=== PATIENT | female | born 1940 | race Caucasian/White ===

== ENCOUNTER 2020-06-16 09:49 | Outpatient (REF) | payer MEDICARE, OTHER, SELFPAY | END 2020-06-16 09:50 | disposition home or self-care (01) | LOC: HO.LAB 09:49 | PROVIDERS: Visit Provider Internal Medicine | DX: Z20.828 Contact with and (suspected) exposure to other viral communicable diseases (principal) | CPT/HCPCS: 87635 ==

== ENCOUNTER 2024-04-29 15:49 | Emergency (ER) | payer MEDICARE, OTHER, SELFPAY ==
--- NOTE | ~2024-04-29 | XR_ITS ---
EXAMINATION: XR CHEST CLINICAL INFORMATION: SOB COMPARISON: Chest xray on 02/18/12 TECHNIQUE: 2 views of the chest were obtained. FINDINGS: No significant abnormality is noted involving the heart, lungs, mediastinum, bony thorax or soft tissues. XR/XR chest 2V IMPRESSION: Unremarkable examination. Electronically signed by: Tatiana Bo MD 04/29/2024 06:13 PM EDT RP
[2024-04-29 16:40] VITALS: BP 162/66; PULSE 81; RESP 20; TEMP 36.3; O2SAT 98; BMI 31.1
--- NOTE | 2024-04-29 16:42 | ED_ITS ---
HPI - General Adult General Chief complaint: Dyspnea Stated complaint: asthma Time Seen by Provider: 04/29/24 21:08 Source: patient and family Mode of arrival: ambulatory Limitations: no limitations History of Present Illness ED Provider: DR. Ratliff HPI narrative: 83-year-old female history of asthma, AFib, presented with symptoms of congestion, nonproductive cough, chest tightness for the past 2 days, was sick with COVID last week, patient stated that she usually gets this asthma symptoms if she is sick at negative home test 2 days ago. Patient also would like to check her urine was recently treated for UTI. Patient last time had upper respiratory infection was RSV and required hospitalization because went into rapid atrial fibrillation No palpitation, no chest pain, otherwise no shortness of breath, no bilateral lower extremities edema, no recent travel, no history of DVT or PE. Related Data Previous Rx's ?Medication ?Instructions ?Recorded albuterol sulfate 90 mcg/actuation 1 inh inhalation QID PRN shortness 04/29/24 aerosol inhaler of breath or wheezing #8.5 grams benzonatate 100 mg capsule 100 mg PO TID PRN cough #14 caps 04/29/24 Allergies Allergy/AdvReac Type Severity Reaction Status Date / Time No Known Allergies Allergy Verified 04/29/24 16:43 Review of Systems 2 Review of Systems: All other systems are reviewed and are negative Constitutional: Reports as per HPI and Reports no additional constitutional complaints Eyes: Reports as per HPI and Reports no additional eye complaints Reports system reviewed and no additional complaints, except as documented Cardiovascular: Reports as per HPI and Reports no additional cardiovascular complaints Respiratory: Reports as per HPI and Reports no additional respiratory complaints Gastrointestinal: Reports as per HPI and Reports no additional gastrointestinal complaints Genitourinary: Reports no additional female genitourinary complaints Musculoskeletal: Reports no additional musculoskeletal complaints Skin/Breast: Reports system reviewed and no additional complaints, except as docu Psychiatric: Reports no additional psychiatric complaints Endocrine: Reports no additional endocrine complaints Hematologic/Lymphatic: Reports no additional hematologic/lymphatic complaints Allergic/Immunologic: Reports no additional allergic/immunologic complaints Reports system reviewed and no additional complaints, except as documented and Reports Abnormal speech present [facility] Social History Social History Smoked in Last 30 Days: No Use of substances other than those prescribed or required for medical reasons: No Advance Directives: Yes Advance Directives Information Provided: No Advance Directives on File: No Physical Exam ED Vital Signs: Vital Signs - 24 hr 04/29/24 16:40 04/29/24 20:27 Temperature 97.3 F 97.8 F Pulse Rate 81 80 Respiratory Rate 20 15 Blood Pressure 162/66 H 155/60 H Pulse Oximetry 98 98 Oxygen Delivery Method Room Air Room Air BMI result Body Mass Index 31.1 Vital signs have been reviewed and appear to be correct. Blood pressure elevated. Heart rate normal. Respiratory rate normal. Temperature normal. Oxygen saturation normal. Appearance: Alert. Oriented X3. No acute distress. Head: Normal external exam. Normocephalic. Atraumatic. No Nava signs noted. No raccoon eyes noted Eyes: PERRLA. EOMI. Conjunctiva and sclera normal. Eyelids normal. ENT: TM's Normal. Pharynx normal. Uvula midline. Moist mucous membranes. No trismus noted. No drooling noted. No muffled voice noted. Neck: Normal inspection. Neck supple. FROM. No adenopathy. Thyroid Normal. No meningeal signs. No neck mass noted. CVS: Normal heart rate and rhythm. Heart sound normal. No murmurs noted. Pulses normal throughout. Respiratory: No respiratory distress. Painless inspiration. Breath sounds normal. No wheezes/rales/rhonchi noted. Chest nontender. No accessory muscle usage noted or decreased air movement noted. Abdomen: Soft and nontender. Bowel sounds normal in all 4 quadrants. No distention noted. No organomegaly noted. No visible injury noted. Back: No CVA tenderness. Full range of motion noted. Skin: Skin warm and dry. Normal skin color. Normal skin turgor. No rashes/lesions/lacerations noted. Extremities: No lower extremity edema. Extremities exhibit normal range of motion. Extremities nontender. Neuro: Oriented X 3. Cranial nerve exam: II-XII are grossly intact No motor deficit. No sensory deficit. Reflexes normal. Course Course Course Narrative: This is an RME: Additional HPI, ROS, PE not included below will be deferred to primary provider. RME assessment and note performed by: Cherie Eduardo PA-C This is a 18-ivqy-bqh-female, asthma, IVIG for autoimmune disorder, a fib on eliquis, HLD, HTN, who presents to the ER with complaints of cough, congestion, and chest tightness. had covid last week. Plan: Labs, EKG, CXR, further ER eval needed Reevaluation(s) Reevaluation #1: COVID positive otherwise stable, no hypoxia, no respiratory distress, no tachypnea patient appear very stable. Will prescribe coughing medicine Tessalon for cough. Use contact percussion. Time: 22:00 Medical Decision Making Differential Diagnosis Differential Diagnoses: The differential diagnosis associated with the presentation includes (ACS, rapid AFib, pneumonia, pneumothorax, pleural effusion, pulmonary embolism, electrolyte derangement, severe anemia, viral pneumonia.) Admission/Observation Consideration of admission/observation: Escalation of care including admission/observation considered Lab Data MDM Lab Attestation statement: I reviewed the patient's lab results. 04/29/24 17:08 04/29/24 17:08 Labs: Lab Results 04/29/24 Range/Units 17:08 WBC 8.3 (4.8-10.8) X10*3/uL RBC 4.21 (4.20-5.50) X10*6/uL Hgb 13.1 (12.0-16.0) g/dl Hct 39.8 (37.0-47.0) % MCV 94.5 (80.0-98.0) fL MCH 31.1 (27.0-33.0) pg MCHC 32.9 (31.0-35.0) g/dl RDW 12.8 (11.0-16.0) % Plt Count 195 (160-400) X10*3/uL MPV 11.7 (9.4-12.3) fL Immature Gran % (Auto) 0.4 (0.0-0.4) % Neut % (Auto) 70.6 (45-73) % Lymph % (Auto) 15.5 L (20-40) % Beaver % (Auto) 11.8 H (2-11) % Eos % (Auto) 1.3 (0-4) % Baso % (Auto) 0.4 (0-2) % Lymph # (Auto) 1.3 (1.2-4.9) X10*3/uL Beaver # (Auto) 1.0 (0.1-1.2) X10*3/uL Eos # (Auto) 0.1 (0.0-0.4) X10*3/uL Baso # (Auto) 0.0 (0.0-0.2) X10*3/uL Abs Immat Gran (auto) 0.03 (0.00-0.03) X10*3/uL Absolute Neuts (auto) 5.8 (2.0-8.3) x10*3/uL Absolute Nucleated RBC 0.000 (0.0-0.012) X10*3/uL Nucleated RBC % (auto) 0.0 (0.0-0.2) /100WBC PT 15.9 H (11.1-13.3) SEC INR 1.3 H (0.9-1.1) APTT 34.0 (26.0-36.8) SEC Sodium 141 (135-145) mmol/L Potassium 3.8 (3.3-5.1) mmol/L Chloride 108 (96-108) mmol/L Carbon Dioxide 24 (22-29) mmol/L Anion Gap 13 (12-20) BUN 22 H (9-16) mg/dL Creatinine 1.11 (0.5-1.4) mg/dL Estim Creat Clear Calc 37.5 Estimated GFR 47 Random Glucose 108 (60-115) mg/dL Calcium 9.4 (8.4-10.2) mg/dL Magnesium 2.4 (1.6-2.6) mg/dL Total Bilirubin 0.5 (0.0-1.0) mg/dL Direct Bilirubin 0.2 (0.0-0.5) mg/dL AST 32 H (5-31) U/L ALT 29 (0-31) U/L Alkaline Phosphatase 92 (39-117) U/L Troponin I High Sens 4.8 (<3.5-17.0) ng/L Total Protein 7.9 (6.5-8.0) g/dL Albumin 4.2 (3.5-5.0) g/dL Influenza Type A (PCR) NEGATIVE (Negative) Influenza Type B (PCR) NEGATIVE (Negative) RSV RNA Qual (PCR) NEGATIVE (Negative) SARS-CoV-2 RNA (RT-PCR) POSITIVE A (Negative) Independent Interpretation I performed an independent interpretation of an: EKG (Normal sinus rhythm at 74 beats per minutes, normal intervals, no ST-T changes.) and Plain X-Ray (Chest: No acute intrathoracic pathology.) Radiology Impression Discussion of test interpretation with radiology: I have reviewed the radiologist's reading. Chronic Conditions Patient?s care impacted by: Other (Asthma) Discharge Plan Discharge Clinical Impression: Asthma with exacerbation, COVID-19 virus infection Patient Disposition: Home, Self-Care Instructions: COVID-19 (Coronavirus Disease 2019) (ED) Additional Instructions: Use face mask at all times, keep 6 ft social distant, frequent hand wash, self quarantine for the next 5 days. Prescriptions: New benzonatate 100 mg capsule 100 mg PO TID PRN (Reason: cough) Qty: 14 0RF albuterol sulfate 90 mcg/actuation HFA aerosol inhaler 1 inh inhalation QID PRN (Reason: shortness of breath or wheezing) Qty: 8.5 0RF Referrals: Irena Lucia MD [Primary Care Provider] - Print Language: Sinhala
--- NOTE | 2024-04-29 16:45 | ECG_ITS ---
Test Reason : ASTHMA Blood Pressure : / mmHG Vent. Rate : 074 BPM Atrial Rate : 074 BPM P-R Int : 166 ms QRS Dur : 094 ms QT Int : 394 ms P-R-T Axes : 003 026 062 degrees QTc Int : 437 ms Normal sinus rhythm Normal ECG When compared with ECG of 08-FEB-2005 08:37, No significant change was found Referred By: Cherie Eduardo Electronically Signed By:IVETH SHELBY
--- OUTSIDE RECORDS SUMMARY | 2024-04-29 17:12 | XMS_ITS | Continuity of Care Document ---
Author Organization [facility] Address [address] [place] [address]- Care Team Providers Care Mechanical Engineering Advisor Name Role Phone Dante SANTIAGO, Neela Garcia Primary Care Physician Encounter [facility] [place] Date(s): 01/09/22 - 01/16/22 [facility] [address], [place] [address] Encounter Diagnosis Tick bite(Discharge Diagnosis) - 01/09/22 Attending Physician: Seth Clifton DO Referring Physician: Dante SANTIAGO, Neela Garcia Allergies, Adverse Reactions, Alerts Substance Reaction Severity Status cortisone flushing, fever Active Percodan Active Immunizations Given and Recorded Vaccine Date Status Refusal Reason Haemophilus B conjugate (HbOC) vaccine 02/19/12 [facility] Zoster Vaccine Live 01/06/08 Given Medications Acidophilus By Mouth, Daily, 0 Refills, Maintenance, 05/26/15 8:06:56 Start Date: 05/26/15 Status: Ordered Bivigam 1x a month Bivigam 1x a month, Refills 0, Maintenance, 05/26/15 12:50:37, Compound Start Date: 05/26/15 Status: Ordered budesonide 0.5 mg/2 mL inhalation suspension 2 mL = 0.5 mg, Neb, 2 times a day, uses intranasally, 0 Refills, Maintenance, 05/26/15 8:09:11 Start Date: 05/26/15 Status: Ordered Calcium Carbonate = 1,000 mg, By Mouth, Daily, 0 Refills, Maintenance, 05/26/15 8:06:32 Start Date: 05/26/15 Status: Ordered Diltiazem = 240 mg, By Mouth, Daily, 0 Refills, Maintenance, 02/19/12 16:21:36 Start Date: 02/19/12 Status: Ordered Doxepin = 25 mg, By Mouth, Daily at bedtime, 0 Refills, Maintenance, 02/19/12 16:20:58 Start Date: 02/19/12 Status: Ordered doxycycline hyclate 100 mg oral capsule 2 capsule = 200 mg, By Mouth, Once, # 2 capsule, 0 Refills, Soft Stop, 01/09/22 11:49:00 EDT, Partial fill upon patient request if the prescription is for a schedule II opioid drug. Start Date: 01/09/22 Status: Ordered Flebogamma 10% intravenous solution 30 grams, IV Infusion, Every 28 days, 0 Refills, Maintenance, 04/11/16 14:48:37 Start Date: 04/11/16 Status: Ordered folic acid 0.4 mg oral tablet 1 tablet = 0.4 mg, By Mouth, Daily, # 100 tablet, 0 Refills, Maintenance, 05/26/15 8:08:46, Tablet Start Date: 05/26/15 Status: Ordered Singulair By Mouth, Daily, 0 Refills, Maintenance, 05/10/17 13:27:17 Start Date: 05/10/17 Status: Ordered turmeric 500 mg oral capsule 1 capsule = 500 mg, By Mouth, Daily, # 60 capsule, 0 Refills, Maintenance, 04/01/20 10:34:00 EDT, Capsule Start Date: 04/01/20 Status: Ordered Vitamin B12 1000 mcg oral tablet 1 tablet = 1,000 mcg, By Mouth, Daily, 0 Refills, Maintenance, 05/26/15 8:08:03 Start Date: 05/26/15 Status: Ordered Vitamin D3 1000 intl units oral tablet 1 tablet = 1,000 International_Units, By Mouth, Daily, 0 Refills, Maintenance, 05/26/15 8:07:37 Start Date: 05/26/15 Status: Ordered Problem List Condition Effective Dates Status Health Status Inform ant 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 Need for hemophilus influenz a type B (Hib) vaccine(Confirmed) Active Obese class I(Confirmed) Active Tubular adenoma of colon(Confirmed) 1 06/27/15 Active 1tubular adenoma of colon in 2020 Diagnosis Diagnosis Type Effective Dates Health Status Clini alfredo Service Informant Tick bite Discharge Diagnosis 01/09/22 Vital Signs Most recent to oldest [Reference Range]: 1 Height 157.4 cm (01/09/22 11:27 AM) Oxygen Saturation [94-100 %] 100 % (01/09/22 11:27 AM) Pulse Rate [55-90 bpm] 78 bpm (01/09/22 11:27 AM) Blood Pressure [90-138/55-84 mm Hg] 158/ 75mm Hg *H* (01/09/22 11:27 AM) Temperature [96.8-100.4 DegF] 97.4 DegF (01/09/22 11:27 AM) Mode of Delivery (Oxygen) Room air (01/09/22 11:27 AM) Blood pressure sites Arm, right (01/09/22 11:27 AM) Temperature Route Temporal (01/09/22 11:27 AM) Social History Social History Type Response Smoking Status Former smoker entered on: 06/24/14 Sex
--- OUTSIDE RECORDS SUMMARY | 2024-04-29 17:12 | XMS_ITS | Continuity of Care Document ---
Author Organization [facility] Address [address] [place] [address]- Care Team Providers Care Felter Tennis Balls Name Role Phone Not on Staff, PCP Primary Care Physician Unavail able Encounter [facility] [place] Date(s): 11/14/21 - 12/14/21 [facility] [address] [place] [id number]- [place] Allergies, Adverse Reactions, Alerts Substance Reaction Severity [...] 02/19/12 16:20:58 Start Date: 02/19/12 Status: Ordered Flebogamma 10% intravenous solution 30 [...] influenz a type B (Hib) vaccine(Confirmed) Active Tubular adenoma of colon(Confirmed) 1 06/27/15 Active 1tubular adenoma of colon in 2020 Social History Social History Type Response Smoking Status Former smoker entered on: 06/24/14 Sex
--- OUTSIDE RECORDS SUMMARY | 2024-04-29 17:12 | XMS_ITS | Continuity of Care Document ---
Author Organization [facility] ter Address [address] [place] [address]- Care Team Providers Care Obedience Trainer Name Role Phone Jasmyn DAMON, Tania Primary Care Physician [phone] Encounter [facility] Date(s): 02/15/20 - 06/22/[address] [address]- [facility] Attending Physician: Vanessa Peres MD Admitting Physician: Vanessa Peres MD Referring Physician: Vanessa Peres MD Allergies, Adverse Reactions, Alerts Substance Reaction Severity [...] Ordered doxycycline hyclate 100 mg oral capsule 1 capsule = 100 mg, By Mouth, 2 times a day, # 20 capsule, 0 Refills, Maintenance, 03/28/18 13:42:30 EDT, Capsule Start Date: 03/28/18 Status: Ordered Flebogamma 10% intravenous solution 30 [...] Effective Dates Status Health Status Inform ant Mannose-binding lectin deficiency(Confirmed) Active Need for hemophilus influenz a type B (Hib) vaccine(Confirmed) Active Tubular adenoma of colon(Confirmed) 06/27/15 Active Social History Social History Type Response Smoking Status Former smoker entered on: 06/24/14 Sex
--- OUTSIDE RECORDS SUMMARY | 2024-04-29 17:12 | XMS_ITS | Continuity of Care Document ---
Author Organization [facility] Address [address] [place] [address]- Care Team Providers Care Dietitian Helper Name Role Phone Jasmyn DAMON, Tania Primary Care Physician [phone] [place] [facility] [place](s): 11/29/20 - 12/29/20 [facility] [address] [place] [id number] Attending Physician: Maria Teresa Westbrook Admitting Physician: Maria Teresa Westbrook Referring Physician: Maria Teresa Westbrook Allergies, Adverse Reactions, Alerts Substance Reaction Severity [...]
--- OUTSIDE RECORDS SUMMARY | 2024-04-29 17:12 | XMS_ITS | Continuity of Care Document ---
Author Organization [facility] Address [address] [place] [address]- Care Team Providers Care Operations Vocational Instructor Name Role Phone Dante SANTIAGO, Neela Garcia Primary Care Physician Encounter [facility] [place] Date(s): 12/28/21 - 01/27/22 [facility] [address] [place] [address]- Attending Physician: Maria Teresa Westbrook Admitting Physician: AdmMaria Teresa sutton Referring Physician: AdmtrMaria Teresa Allergies, Adverse Reactions, Alerts Substance Reaction Severity [...]
--- OUTSIDE RECORDS SUMMARY | 2024-04-29 17:12 | XMS_ITS | Continuity of Care Document ---
Author Organization [facility] ter Address [address] [place] [address]- Care Team Providers Care Toll Gate Tender Name Role Phone Jasmyn DAMON, Tania Primary Care Physician Encounter [facility] [place] Date(s): 08/22/19 - 08/22/[address] [address]- [facility] Attending Physician: Vanessa Peres MD Allergies, Adverse Reactions, [...] 05/10/17 13:27:17 Start Date: 05/10/17 Status: Ordered Vitamin B12 1000 mcg oral [...]
--- OUTSIDE RECORDS SUMMARY | 2024-04-29 17:12 | XMS_ITS | Continuity of Care Document ---
Author Organization [facility] ter Address [address] [place] [address]- Care Team Providers Care Ragman Name Role Phone Jasmyn DAMON, Tania Primary Care Physician [phone] Encounter [facility] [place] Date(s): 08/22/19 - 08/22/[address] [address]- [facility] Attending Physician: Tania Vines MD Allergies, Adverse Reactions, Alerts Substance Reaction [...]
--- OUTSIDE RECORDS SUMMARY | 2024-04-29 17:12 | XMS_ITS | Continuity of Care Document ---
Author Organization [facility] Address [address] [place] [address]- Care Team Providers Care Commissary Assistant Name Role Phone Tania Vines MD Primary Care Physician [phone] Encounter [id number] Date(s): 11/29/20 - 04/04/21 [facility] [address] [place] [address]- Discharge Disposition: A-D/C Home Attending Physician: Mary Ellen DAMON(Hem/Onc), Chase Krishnamurthy Admitting Physician: Mary Ellen DAOMN(Hem/Onc), Chase Krishnamurthy Referring Physician: Bhavin Wade MD Allergies, Adverse Reactions, Alerts Substance Reaction [...] Active Tubular adenoma of colon(Confirmed) 06/27/15 Active Vital Signs Most recent to oldest [Reference Range]: 1 Height 160.00 cm (01/13/21 9:26 AM) Weight 79.1 kg (01/13/21 9:26 AM) Oxygen Saturation [94-100 %] 99 % (01/13/21: AM) Pulse Rate [55-90 bpm] 91 bpm *H* (01/13/21: AM) Body Mass Index [18.5-24.99] 30.9 *>HHI* (01/13/21 9: AM) Blood Pressure [90-138/55-84 mm Hg] 155/ 88mm Hg *H* (01/13/21 9: AM) Respiratory Rate [16-30 br/min] 18 br/mi n (01/13/21: AM) Temperature [96.8-100.4 DegF] 98.5 DegF (01/13/21 9:26 AM) Mode of Delivery (Oxygen) Nasal cannula (01/13/21 9:26 AM) Blood pressure sites Arm, left (01/13/21 9:26 AM) Temperature Route Temporal (01/13/21 9:26 AM) Dry Weight 79.1 kg (01/13/21 9:26 AM) Weight Obtained Via Standing scale (01/13/21 9:26 AM) Dry Weight Obtained Via Standing scale (01/13/21 9:26 AM) Social History Social History Type Response Smoking Status Former smoker entered on: 06/24/14 Sex
--- OUTSIDE RECORDS SUMMARY | 2024-04-29 17:12 | XMS_ITS | Continuity of Care Document ---
Author Organization [facility] ter Address [address] [place] [address]- Care Team Providers Care Classifying Machine Operator Name Role Phone Jasmyn DAMON, Tania Primary Care Physician [place] [facility] [place] - 05/29/[address] [address]- [facility] Attending Physician: Vanessa Peres MD Admitting Physician: [...]
--- OUTSIDE RECORDS SUMMARY | 2024-04-29 17:12 | XMS_ITS | Continuity of Care Document ---
Author Organization [facility] Address [address] [place] [address]- Care Team Providers Care Adult Psychiatrist Name Role Phone Khari DAMON, Irena Zhong Primary Care Physician Encounter [facility] [place] Date(s): 10/02/22 - 02/06/[address] [id number] Attending Physician: Vanessa Peres MD Admitting Physician: Vanessa Peres MD Referring Physician: Vanessa Peres MD Allergies, Adverse Reactions, Alerts Substance Reaction Severity Status cortisone flushing, fever Active Percodan Active NSAIDs Active Immunizations Given and Recorded Vaccine Date Status Refusal Reason [id number] 12y+ bivalent booster vax 05/29/22 Recorded influenza virus vaccine, inactivated 05/08/22 Gigi rded influenza virus vaccine, inactivated 04/25/20 Gigi rded influenza virus vaccine, inactivated 05/25/19 Gigi rded influenza virus vaccine, inactivated 05/28/18 Gigi rded influenza virus vaccine, inactivated 05/13/17 Gigi rded influenza virus vaccine, inactivated 05/01/16 Gigi rded influenza virus vaccine, inactivated 06/29/15 Gigi rded influenza virus vaccine, inactivated 05/21/11 Gigi rded influenza virus vaccine, inactivated 07/07/10 Gigi rded SARS-CoV-2 mRNA ([id number]) vax 01/02/22 Recorded SARS-CoV-2 (COVID-19) mRNA BNT-162b2 vac 07/02/21 Recorded tetanus/diphtheria/pertussis, acel(Tdap) 08/22/19 Recorded Haemophilus B conjugate (HbOC) vaccine 02/19/12 Gi carlita Zoster Vaccine Live 01/06/08 Given Medications Acidophilus By Mouth, Daily, 0 Refills, Maintenance, 05/26/15 8:06:56 Start Date: 05/26/15 Status: Ordered Albuterol (Eqv-ProAir HFA) 90 mcg/inh inhalation aerosol 2 puffs, Inhalation, Every 6 hours, PRN Wheezing/Shortness of Breath, 0 Refills, Maintenance, 12/08/22 11:03:00 EDT, Partial fill upon patient request if the prescription is for a schedule II opioid drug. Start Date: 12/08/22 Status: Ordered apixaban 5 mg oral tablet 1 tablet = 5 mg, By Mouth, 2 times a day, # 180 tablet, 3 Refills, Maintenance, 12/20/22 15:40:00 EDT, Tablet, Partial fill upon patient request if the prescription is for a schedule II opioid drug. Start Date: 12/20/22 Stop Date: 12/15/23 Status: Ordered atorvastatin 20 mg oral tablet 1 tablet = 20 mg, By Mouth, Daily, # 90 tablet, 0 Refills, Maintenance, 12/08/22 11:05:00 EDT, Tablet, Partial fill upon patient request if the prescription is for a schedule II opioid drug. Start Date: 12/08/22 Status: Ordered Bivigam 1x a month Bivigam 1x a month, Refills 0, Maintenance, 05/26/15 12:50:37, Compound Start Date: 05/26/15 Status: Ordered Calcium Carbonate = 1,000 mg, By Mouth, Daily, 0 Refills, Maintenance, 05/26/15 8:06:32 Start Date: 05/26/15 Status: Ordered cetirizine 5 mg oral tablet = 10 mg, By Mouth, Daily, PRN Wheezing/Shortness of Breath, # 30 tablet, 0 Refills, Maintenance, 12/08/22 11:11:00 EDT, Tablet, Partial fill upon patient request if the prescription is for a scheduleII opioid drug. Start Date: 12/08/22 Status: Ordered Cranberry oral capsule 1 capsule, By Mouth, Daily, 0 Refills, Maintenance, 06/01/22 8:35:00 EDT, Partial fill upon patientrequest if the prescription is for a schedule II opioid drug. Start Date: 06/01/22 Status: Ordered dilTIAZem 360 mg/24 hours oral capsule, extended release 1 capsule = 360 mg, By Mouth, Daily, # 90 capsule, 0 Refills, Maintenance, 01/04/23 11:07:00 EDT, CR Capsule, Partial fill upon patient request if the prescription is for a schedule II opioid drug. Start Date: 01/04/23 Status: Ordered doxepin 25 mg oral capsule 2 capsule = 50 mg, By Mouth, Daily at bedtime, # 60 capsule, 0 Refills, Maintenance, 01/04/23 11:11:00 EDT, Capsule, Partial fill upon patient request if the prescription is for a schedule II opioid drug. Start Date: 01/04/23 Status: Ordered famotidine 40 mg oral tablet 1 tablet = 40 mg, By Mouth, Daily at bedtime, # 90 tablet, 0 Refills, Maintenance, 01/04/23 11:09:00 EDT, Tablet, Partial fill upon patient request if the prescription is for a schedule II opioid drug. Start Date: 01/04/23 Status: Ordered Flebogamma 10% intravenous solution 30 grams, IV Infusion, Every 28 days, 0 Refills, Maintenance, 04/11/16 14:48:37 Start Date: 04/11/16 Status: Ordered fluticasone CFC free 220 mcg/inh inhalation aerosol 2 puffs, Inhalation, 2 times a day, # 12 Gm, 0 Refills, Maintenance, 01/04/23 11:10:00 EDT, Aerosol, Partial fill upon patient request if the prescription is for a schedule II opioid drug. Start Date: 01/04/23 Status: Ordered Senna 8.6 mg oral tablet 8.6 mg, 1, tablet, By Mouth, Daily at bedtime, Refills 0, Maintenance, 12/08/22 11:16:00 EDT, Partial fill upon patient request if the prescription is for a schedule II opioid drug. 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 Mild intermittent asthma Confirmed Active Obese class I Confirmed Active Osteopenia Confirmed Active Squamous cell skin cancer Confirmed Active Hepatic steatosis Confirmed Active Tubular adenoma of colon 1 Confirmed 06/27/15 Active 1tubular adenoma of colon in 2020 Social History Social History Type Response Smoking Status Former smoker entered on: 06/24/14 Sex Patient Care team information Care Team Personnel Name: Rosi Blum RN Position: S RN Member Role: Primary Care Nurse Name: Taylor Street RN Position: [facility] RN Supv Member Role: Primary Care Nurse Name: Irena Lucia MD Position: [facility] Physician - Primary Care Member Role: PCP Address: Address: [address] [place] [address] [place] [address]- Name: Montse Boyer RN Position: [facility] SN RN Member Role: Primary Care Nurse Name: Diane Nelson RN Position: [facility] Onco RN Member Role: Primary Care Nurse Care Team Related Persons Name: TIM HENRIQUEZ Name: IVETH HOLLAND Address: [address] [address]
--- OUTSIDE RECORDS SUMMARY | 2024-04-29 17:12 | XMS_ITS | Continuity of Care Document ---
Author Organization [facility] Address [address] [place] [address]- Care Team Providers Care Copier Operator Name Role Phone Irena Lucia MD Primary Care Physician En[place] [facility] [place](s): 01/08/23 - 03/12/23 [facility] [address] [place] [address]- Discharge Disposition: A-D/C Home Attending Physician: Mary Ellen DAMON(Hem/Onc), Chase Krishnamurthy Admitting Physician: Mary Ellen DAMON(Hem/Onc), Chase Krishnamurthy Referring Physician: Irena Lucia MD Allergies, Adverse Reactions, Alerts Substance Reaction Severity Status cortisone flushing, fever Active Percodan Active NSAIDs Active Immunizations Given and Recorded Vaccine Date Status Refusal Reason [id number] 12y+ bivalent booster vax 05/29/22 Recorded influenza [...] vaccine, inactivated 07/07/10 Gigi rded SARS-CoV-2 mRNA ([id number]) vax 01/02/22 Recorded SARS-CoV-2 (COVID-19) mRNA BNT-162b2 [...] Chronic sinusitis Confirmed 01/20/15 Active 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 Active Pancreatic lesion Confirmed Active [...] Active 1tubular adenoma of colon in 2020 Vital Signs Most recent to oldest [Reference Range]: 1 Height 157.4 cm (01/10/23 9:21 AM) Weight 78 kg (01/10/23 9:21 AM) Oxygen Saturation [94-100 %] 97 % (01/10/23 9:21 AM) Pulse Rate [55-90 bpm] 81 bpm (01/10/23 9:21 AM) Body Mass Index [18.5-24.99 kg/m2] 31.48 kg/m2 *>HHI* (01/10/23 9:21 AM) Blood Pressure [90-138/55-84 mm Hg] 128/ 68mm Hg (01/10/23 9:21 AM) Temperature [96.8-100.4 DegF] 98.5 DegF (01/10/23 9:21 AM) Mode of Delivery (Oxygen) Room air (01/10/23 9:21 AM) Blood pressure sites Arm, right (01/10/23 9:21 AM) Temperature Route Oral (01/10/23 9:21 AM) Dry Weight 78 kg (01/10/23 9:21 AM) Weight Obtained Via Standing scale (01/10/23 9:21 AM) Dry Weight Obtained Via Standing scale (01/10/23 9:21 AM) Social History Social History Type Response Smoking Status Former smoker entered on: 06/24/14 Sex Patient Care team information Care Team Personnel Name: Rosi Blum RN Position: [facility] RN Member Role: Primary Care Nurse Name: Taylor Street RN Position: [facility] RN Supv Member Role: Primary Care Nurse Name: Irena Lucia MD Position: [facility] Physician - Primary Care Member Role: PCP Address: Address: [facility] [place] [address]- Name: Montse Boyer RN Position: [facility] SN RN Member Role: Primary Care Nurse Name: Diane Nelson RN Position: [facility] Onco RN Member Role: Primary Care Nurse Name: Mary Ellen DAMON(Hem/Onc)Chase Position: [facility] Physician - Oncology Med Service: Hematology & Oncology Member Role: Admitting Physician Address: Address: [address] [place] [address] Cancer Care [facility] [place] [address]- Care Team Related Persons Name: TIM HENRIQUEZ Name: IVETH HOLLAND Address: [address] [address]
--- OUTSIDE RECORDS SUMMARY | 2024-04-29 17:12 | XMS_ITS | Continuity of Care Document ---
Author Organization [facility] Address [address] [place] [address]- Care Team Providers Care Hop Grower Name Role Phone Khari DAMON, Irena Zhong Primary Care Physician [phone] Encounter [facility] [place] Date(s): 08/28/23 - 09/27/23 [facility] [address] [place] [address]- Allergies, Adverse Reactions, Alerts Substance Reaction Severity Status cortisone flushing, fever Active Percodan Active NSAIDs Active Immunizations Given and Recorded Vaccine Date Status Refusal Reason RSV vaccine preF3, recombinant 06/10/23 Recorded SARS-CoV-2(COVID-19)mRNA-LNP vac([id number]) 06/01/23 Recorded influenza virus vaccine, inactivated 05/28/23 Gigi rded influenza virus vaccine, inactivated 05/08/22 Gigi rded influenza virus vaccine, inactivated 04/25/20 Gigi rded influenza virus vaccine, inactivated 05/25/19 Gigi rded influenza virus vaccine, inactivated 05/28/18 Gigi rded influenza virus vaccine, inactivated 05/13/17 Gigi rded influenza virus vaccine, inactivated 05/01/16 Gigi rded influenza virus vaccine, inactivated 06/29/15 Gigi rded influenza virus vaccine, inactivated 05/21/11 Gigi rded influenza virus vaccine, inactivated 07/07/10 Gigi rded [id number] 12y+ bivalent booster vax 05/29/22 Recorded SARS-CoV-2 mRNA ([id number]) vax 01/02/22 Recorded SARS-CoV-2 (COVID-19) mRNA BNT-162b2 [...] By Mouth, 2 times a day, # 14 tablet, 0 Refills, Maintenance, 09/06/23 13:09:00 EST, Tablet, [facility]/pharmacy #[id number], Partial fill upon patient request if the prescription is for a schedule II opioid drug., 157.4, cm, 07/11/23 14:19:00 EST... Start Date: 09/06/23 Stop Date: 12/05/23 Status: Ordered atorvastatin 20 mg oral tablet 1 tablet = 20 mg, By Mouth, Daily, # 30 tablet, 6 Refills, Maintenance, 06/20/23 8:30:00 EDT, Tablet, [facility]/pharmacy #[id number], Partial fill upon patient request if the prescription is for a schedule II opioid drug., 157.4, cm, 06/04/23 10:18:00 EDT, Height... Start Date: 06/20/23 Status: Ordered Bivigam 1x a month Bivigam [...] bedtime, # 60 capsule, 0 Refills, Maintenance, 09/27/23 14:30:00 EST, Capsule, [facility]/pharmacy #[id number], Partial fill upon patient request if the prescription is for aschedule II opioid drug., 157.4, cm, 07/11/23 14:19... 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 Chronic anticoagulation Confirmed Active Mannose-binding lectin deficiency Confirmed Active [...] RN Member Role: Primary Care Nurse Name: Irena Lucia MD Position: [facility] Physician - Primary Care Member Role: PCP Address: Address: [address] [place] [address] [place] [address]- Name: Montse Boyer RN Position: [facility] SN RN Member Role: Primary Care Nurse Name: Diane Nelson RN Position: [facility] Onco RN Member Role: Primary Care Nurse Name: Kimberly Pabon RN Position: [facility] SN RN Member Role: Primary Care Nurse Care Team Related Persons Name: TIM HENRIQUEZ Name: IVETH HOLLAND Address: [address] [address]
--- OUTSIDE RECORDS SUMMARY | 2024-04-29 17:12 | XMS_ITS | Continuity of Care Document ---
Author Organization [facility] Address [address] [place] [address]- Care Team Providers Care Slot Machine Key Person Name Role Phone Khari DAMON, Irena Zhong Primary Care Physician Encounter [facility] [place] Date(s): 07/11/23 - 07/18/23 [facility] [address] [place] [address]- Attending Physician: Celestine Saenz MD Allergies, Adverse Reactions, Alerts Substance Reaction Severity Status cortisone flushing, fever Active Percodan Active NSAIDs Active Immunizations Given and Recorded Vaccine Date Status Refusal Reason RSV vaccine preF3, recombinant 06/10/23 Recorded SARS-CoV-2(COVID-19)mRNA-LNP vac([id number]) 06/01/23 Recorded influenza virus vaccine, inactivated 05/28/23 [...] influenza virus vaccine, inactivated 07/07/10 Gigi rded [id number] 12y+ bivalent booster vax 05/29/22 Recorded SARS-CoV-2 mRNA ([id number]-[id number]) vax 01/02/22 Recorded SARS-CoV-2 (COVID-19) mRNA BNT-162b2 [...] 6 Refills, Maintenance, 06/20/23 8:30:00 EDT, Tablet, [facility]/pharmacy #[id number], Partial fill upon patient request if [...] Status Informant Afib Confirmed Active 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 Active Diverticulosis Confirmed Active Essential [...] Most recent to oldest [Reference Range]: 1 2 Height 157.4 cm (07/11/23 2:19 PM) 157.4 cm (07/11/23 2:13 PM) Weight 80.7 kg (07/11/23 2:13 PM) Oxygen Saturation [94-100 %] 98 % (07/11/23 2:13 PM) Pulse Rate [55-90 bpm] 78 bpm (07/11/23 2:19 PM) 81 bpm (07/11/23 2:13 PM) Body Mass Index [18.5-24.99 kg/m2] 32.57 kg/m2 *>HHI* (07/11/23 2:13 PM) Blood Pressure [90-138/55-84 mm Hg] 132/ 64mm Hg (07/11/23 2:19 PM) 147/66mm Hg *H* (07/11/23 2:13 PM) Mode of Delivery (Oxygen) Room air (07/11/23 2:13 PM) Blood pressure sites Arm, right (07/11/23 2:19 PM) Arm, left (07/11/23 2:13 PM) Weight Obtained Via Bed scale (07/11/23 2:13 PM) Social History Social History Type Response Smoking Status Former smoker entered on: 06/24/14 Sex Cardiology Outpatient Note * Dany DAMON, Celestine Velasquez: PERFORM Event Display: Cardiology Note Office Authored Date: [id number] Patient: ??ZEE HOLLAND ? Age:??83 Years?Sex:??Female?:??1940?? Indication for Consult Afib 6 mo follow up History of Present Illness/Interval History It was a pleasure seeing Eugenie in follow-up. ??She states that overall she is doing well. ??She denies any??chest pain or shortness of breath.?? She is tolerating her current dose of atorvastatin without difficulty.?? She had lipids checked yesterday??by her PCP but she does not know the results??yet. ??She states that sometimes her blood pressure is very low.?? It is in the 100 systolic. ??Do Ineed to be??on this high of a dose??of??diltiazem? ??Also notes that she read??about taking statins every other day and is interested in??discussing this Review of Systems 10+ system ROS performed, pertinent positives and negatives in HPI and below. ??See scanned patientquestionnaire. Physical Exam Vitals & Measurements HR:??78??(Peripheral)?? BP:??132/64?? SpO2:??98%?? HT:??157.4??cm?? WT:??80.7??kg?? BMI:??32.57?? Weight lb/oz: 177 lb 15 oz Gen: pleasant, in no distress on room air, BMI mildly elevated Resp: lungs clear to auscultation bilaterally CV: normal rate, regular rhythm, no murmurs rubs or gallops. Ext: ??No JVD. ??No lower extremity edema. No carotid bruits.?? Assessment/Plan 83-year-old female with history of paroxysmal atrial fibrillation,??on chronic anticoagulation withEliquis,??essential hypertension, mixed hyperlipidemia, class I obesity presents for follow-up.?? She is doing very well with no cardiovascular symptoms. ??Her blood pressure and lipids are much improved.?? Regarding??the question about her diltiazem dose, we??discussed that??she is on diltiazem both for rate control of atrial fibrillation and blood??pressure control.?? I do not consider systolicblood pressure in 100s to be low??when it is asymptomatic. ??We will make no changes on that front.?? Regarding taking her statin every other day, we??discussed the??rationale for treating hyperlipide maria, specifically??reducing atherosclerotic cardiovascular risk. ??Her 10- year??ASCVD risk is 15.3%now which is considered intermediate to high.?? Her 10- year atherosclerotic cardiovascular risk in 2020 prior to starting the statin, however was 26.7%. ??She has had a robust response to the statin and I would not suggest changing it.?? Continue??anticoagulation for??atrial fibrillation given [id number]??of??at least 4.?? I will see her back in a year. 1.??Paroxysmal A-fib 2.??Chronic anticoagulation 3.??Essential hypertension 4.??Mixed hyperlipidemia 5.??Obese class I ? The above note was prepared with the help of voice recognition software. Please excuse any grammatical or spelling errors that may have occurred. ?? Thank you for involving me in the care of this patient. ??Please do not hesitate to contact me withquestions or concerns. ?? Celestine Saenz MD [facility] [phone] ?? [address] [place] [address] Allergies NSAIDs Percodan cortisone??(flushing, fever) Home Medications Acidophilus, By Mouth, Daily Albuterol (Eqv-ProAir HFA) 90 mcg/inh inhalation aerosol, 2 puffs, Inhalation, Every 6 hours, PRN apixaban 5 mg oral tablet, 5 mg= 1 tablet, By Mouth, 2 times a day, 3 refills atorvastatin 20 mg oral tablet, 20 mg= 1 tablet, By Mouth, Daily, 6 refills Bivigam 1x a month Calcium Carbonate, 1000 mg, By Mouth, Daily cetirizine 5 mg oral tablet, 10 mg, By Mouth, Daily, PRN Cranberry oral capsule, 1 capsule, By Mouth, Daily dilTIAZem 360 mg/24 hours oral capsule, extended release, 360 mg= 1 capsule, By Mouth, Daily doxepin 25 mg oral capsule, 50 mg= 2 capsule, By Mouth, Daily at bedtime famotidine 40 mg oral tablet, 40 mg= 1 tablet, By Mouth, Daily at bedtime Flebogamma 10% intravenous solution, 30 grams, IV Infusion, Every 28 days fluticasone CFC free 220 mcg/inh inhalation aerosol, 2 puffs, Inhalation, 2 times a day Gammagard 10% Liquid, 30 Gm= 300 mL, IVPB, Every 28 days NaCL 0.9% 500 mL, 500 mL, IV Infusion Senna 8.6 mg oral tablet, 8.6 mg= 1 tablet, By Mouth, Daily at bedtime Singulair, By Mouth, Daily Lab Results Cardiology Labs WBC: 7.2 k/mm3 (07/11/23) RBC: 4.38 m/mm3 (07/11/23) Hgb: 13.5 Gm/dL (07/11/23) Hct: 41.3 % (07/11/23) MCV: 94.3 femtoliters (07/11/23) MCH: 30.8 pg (07/11/23) MCHC:??32.7 g/dL??Low (07/11/23) Platelet Count: 236 k/mm3 (07/11/23) RDW-SD: 44.9 femtoliters (07/11/23) Nucleated RBC (Automated): 0 #/100 WBC'S (07/11/23) Sodium: 140 mmol/L (07/11/23) Potassium: 4.7 mmol/L (07/11/23) Chloride: 106 mmol/L (07/11/23) Bicarbonate Level: 27 mmol/L (07/11/23) Glucose Level: 85 mg/dL (07/11/23) BUN: 18 mg/dL (07/11/23) Creatinine-Blood: 1 mg/dL (07/11/23) Calcium: 9.5 mg/dL (07/11/23) Protein, Total: 7.6 Gm/dL (07/11/23) Albumin: 4.4 Gm/dL (07/11/23) Alkaline Phosphatase:??112 units/L??High (07/11/23) AST (SGOT): 19 units/L (07/11/23) ALT (SGPT): 16 units/L (07/11/23) Bilirubin, Total: 0.4 mg/dL (07/11/23) Cholesterol: 183 mg/dL (07/11/23) Triglycerides: 119 mg/dL (07/11/23) HDL Cholesterol: 60 mg/dL (07/11/23) LDL Cholesterol: 99 mg/dL (07/11/23) Non HDL Cholesterol: 123 mg/dL (07/11/23) TSH: 0.97 uIU/mL (07/11/23) Diagnostic Impression ECG ECG 12-Lead ?? 14:06:13 Ventricular Rate: 76 BPM Atrial Rate: 76 BPM P-R Interval: 156 ms QRS Duration: 94 ms Q-T Interval: 398 ms QTC Calculation(Bazett): 447 ms P [place]: 24 degrees R [place]: 29 degrees T [place]: 59 degrees Normal sinus rhythm with sinus arrhythmia Normal ECG When compared with ECG of 18-JUL-2005 10:53, No significant change was found Confirmed by ORLIN GARCIA MD ([id number]) on 12/20/2022 9:47:52 PM ?? [place]: ORLIN GARCIA MD ?? Signed By: Orlin Garcia MD ?? ECG 12-Lead ?? 14:06:13 Please click on pdf link to open report ?? 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 Frequency: 1-2 times per week. Type: Wine, Liquor. Other: rarely. Electronic Cigarette/Vaping Electronic Cigarette Use: Never. Employment/School Status: Retired. Exercise Self assessment: Good condition. Regular exercise: Yes. Exercise frequency: 3-4 times/week. Home/Environment Living situation: Home/Independent. Lives with: Spouse. Nutrition/Health Diet: Regular. Other Name: 2 Children.. Sexual Sexually involved in last 6 months: No. Substance Abuse Use: Never. Tobacco Use: Former smoker. Family History Father (): Parkinson disease Sister: Hypertension Brother (): Cancer Patient Care team information Care Team Personnel Name: Rosi Blum RN Position: [facility] RN Member Role: Primary Care Nurse Name: Irena Lucia MD Position: [facility] Physician - Primary Care Member Role: PCP Address: Address: [facility] [place] [address]- Name: Montse Boyer RN Position: [facility] SN RN Member Role: Primary Care Nurse Name: Diane Nelson RN Position: [facility] Onco RN Member Role: Primary Care Nurse Name: Kimberly Pabon RN Position: [facility] SN RN Member Role: Primary Care Nurse Care Team Related Persons Name: TIM HENRIQUEZ Name: IVETH HOLLAND Address: [address] [address]
--- OUTSIDE RECORDS SUMMARY | 2024-04-29 17:12 | XMS_ITS | Continuity of Care Document ---
Author Organization [facility] Address [address] [place] [address]- Care Team Providers Care Assembly Operator Name Role Phone Jasmyn DAMON, Tania Primary Care Physician [place] [facility] [place] [facility] [place] Date(s): 10/13/20 - 12/28/[address] [address] Attending Physician: Vanessa Peres MD Admitting Physician: Vansesa Peres MD Referring Physician: Vanessa Peres MD [...]
--- OUTSIDE RECORDS SUMMARY | 2024-04-29 17:12 | XMS_ITS | Continuity of Care Document ---
Author Organization [facility] Address [address] [place] [address]- Care Team Providers Care Concrete Building Assembler Name Role Phone Neela Howell NP Primary Care Physician Encounter [facility] [place] Date(s): 09/12/22 - 10/12/22 [facility] [address] [place] [address]- [place] Allergies, Adverse Reactions, Alerts Substance Reaction [...] 05/26/15 8:06:32 Start Date: 05/26/15 Status: Ordered Cranberry oral capsule 1 capsule, By Mouth, Daily, 0 Refills, Maintenance, 06/01/22 8:35:00 EDT, Partial fill upon patientrequest if the prescription is for a schedule II opioid drug. 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 Need for hemophilus influenza type B (Hib) vaccine Confirmed Active Obese class I Confirmed Active Tubular adenoma of colon 1 Confirmed 06/27/15 Active 1tubular adenoma of colon in 2020 Social History Social History Type Response Smoking Status Former smoker entered on: 06/24/14 Sex Patient Care team information Care Team Personnel Name: Diane Quiroz RN Position: [facility] Onco RN Member Role: Primary Care Nurse Name: Gideon Vasquez RN Position: [facility] ED RN W/OE and Tasks Member Role: Primary Care Nurse Name: Rosi Blum RN Position: [facility] RN Member Role: Primary Care Nurse Name: Taylor Street RN Position: [facility] RN Supv Member Role: Primary Care Nurse Name: Neela Howell NP Position: [facility] Outreach Member Role: PCP Address: Address: [address] [place] [id number] Name: Montse Boyer RN Position: [facility] SN RN Member Role: Primary Care Nurse Name: Kimberly Pabon RN Position: [facility] RN Member Role: Primary Care Nurse Care Team Related Persons Name: TIM HENRIQUEZ Name: IVETH HOLLAND Address: home [address] [place] [id number]
--- OUTSIDE RECORDS SUMMARY | 2024-04-29 17:12 | XMS_ITS | Continuity of Care Document ---
Author Organization [facility] Address [address] [place] [address]- Care Team Providers Care Videotape Operator Name Role Phone Dante SANTIAGO, Neela Garcia Primary Care Physician Encounter [facility] [place] Date(s): 01/09/22 - 02/08/22 [facility] [address] [place] [address]- Attending Physician: Maria Teresa Westbrook Admitting Physician: Maria Teresa Westbrook Referring Physician: AdmtrMaria Teresa Allergies, Adverse Reactions, [...]
--- OUTSIDE RECORDS SUMMARY | 2024-04-29 17:12 | XMS_ITS | Continuity of Care Document ---
Author Organization [facility] Address [address] [place] [address]- Care Team Providers Care Hospital Medical Biller Name Role Phone Irena Lucia MD Primary Care Physician Encounter [facility] [place] Date(s): 01/08/23 - 02/07/23 [facility] [address] [place] [address]- Attending Physician: Maria Teresa Westbrook Admitting Physician: Maria Teresa Westbrook Referring Physician: AdmtrMaria Teresa Allergies, Adverse Reactions, Alerts Substance Reaction Severity Status cortisone flushing, fever Active Percodan Active NSAIDs Active Immunizations Given and Recorded Vaccine Date Status Refusal Reason [id number] 12y+ bivalent booster vax 05/29/22 Recorded influenza [...] vaccine, inactivated 07/07/10 Gigi rded SARS-CoV-2 mRNA ([id number]) vax 01/02/22 Recorded SARS-CoV-2 (COVID-19) mRNA BNT-162b2 [...] Chronic sinusitis Confirmed 01/20/15 Active 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 Active Pancreatic lesion Confirmed Active [...] Care Nurse Name: Taylor Street RN Position: [facility] RN Supv Member Role: Primary Care Nurse Name: Irena Lucia MD Position: [facility] Physician - Primary Care Member Role: PCP Address: Address: [address] [place] [address] [place] [address]- Name: Montse Boyer RN Position: [facility] SN RN Member Role: Primary Care Nurse Name: Diane Nelson RN Position: [facility] Onco RN Member Role: Primary Care Nurse Care Team Related Persons Name: TIM HENRIQUEZ Name: IVETH HOLLAND Address: [address] [address]
--- OUTSIDE RECORDS SUMMARY | 2024-04-29 17:12 | XMS_ITS | Continuity of Care Document ---
Author Organization [facility] Address [address] [place] [address]- Care Team Providers Care Ap Operator Name Role Phone Not on Staff, PCP Primary Care Physician Unavail able [place] [facility] [place] 08/28/21 - 09/27/21 [facility] [address] [place] [address]- Attending Physician: Maria Teresa Westbrook Admitting Physician: [...] 0 Refills, Maintenance, 02/19/12 16:21:36 Start Date: 6/26/12 Status: Ordered Doxepin = 25 mg, By [...]
--- OUTSIDE RECORDS SUMMARY | 2024-04-29 17:12 | XMS_ITS | Continuity of Care Document ---
Author Organization [facility] Address [address] [place] [address]- Care Team Providers Care Arbor Press Operator Name Role Phone Not on Staff, PCP Primary Care Physician Unavail able Encounter [facility] [place] Date(s): 08/28/21 - 09/04/21 [facility] [address] [place] [address]- Attending Physician: Rj Shaw MD Allergies, Adverse Reactions, Alerts Substance Reaction [...] Active Tubular adenoma of colon(Confirmed) 06/27/15 Active 1tubular adenoma of colon in 2020 Social History Social History Type Response Smoking Status Former smoker entered on: 06/24/14 Sex
--- OUTSIDE RECORDS SUMMARY | 2024-04-29 17:12 | XMS_ITS | Continuity of Care Document ---
Author Organization [facility] Address [address] [place] [address]- Care Team Providers Care Floor Finisher Name Role Phone Jasmyn DAMON, Tania Primary Care Physician [phone] [place] [facility] [place](s[place] 02/15/20 - 04/27/[address] [address]- [facility] Attending Physician: Vanessa Peres MD Admitting [...]
--- OUTSIDE RECORDS SUMMARY | 2024-04-29 17:12 | XMS_ITS | Continuity of Care Document ---
Author Organization [facility] Address [address] [place] [address]- Care Team Providers Care Rotary Furnace Operator Name Role Phone Jasmyn DAMON, Tania Primary Care Physician [phone] Encounter [facility] [place] Date(s): 04/17/21 - 05/17/21 [facility] [address] [place] [address]- [place] Allergies, Adverse Reactions, Alerts Substance Reaction [...]
--- OUTSIDE RECORDS SUMMARY | 2024-04-29 17:12 | XMS_ITS | Continuity of Care Document ---
Author Organization [facility] Address [address] [place] [address]- Care Team Providers Care Windows Systems Engineer Name Role Phone Not on Staff, PCP Primary Care Physician Unavail able Encounter [facility] Date(s): 11/06/21 - 12/06/21 [facility] [address] [place] [address]- [place] Allergies, Adverse Reactions, Alerts Substance Reaction [...]
--- OUTSIDE RECORDS SUMMARY | 2024-04-29 17:12 | XMS_ITS | Continuity of Care Document ---
Author Organization [facility] Address [address] [place] [address]- Care Team Providers Care Hand Suture Winder Name Role Phone Dante SANTIAGO, Neela Garcia Primary Care Physician Encounter [facility] [place] Date(s): 12/20/22 - 12/27/22 [facility] [address] [place] [address]- Encounter Diagnosis Obese class I(Discharge Diagnosis) - 12/20/22 Essential hypertension(Discharge Diagnosis) - 12/24/22 Attending Physician: Dany DAMON, Celestine Velasquez Referring Physician: Not on Staff, Referring MD Allergies, Adverse Reactions, Alerts Substance Reaction [...] opioid drug. Start Date: 12/08/22 Status: Ordered benzonatate 100 mg oral capsule 1 capsule = 100 mg, By Mouth, 3 times a day, PRN as needed for cough, # 21 capsule, 0 Refills, Maintenance, 12/08/22 11:06:00 EDT, Capsule, Partial fill upon patient request if the prescription is for a schedule II opioid drug. Start Date: 12/08/22 Stop Date: 12/15/22 Status: Ordered Bivigam 1x a month Bivigam [...] Start Date: 06/01/22 Status: Ordered Diltiazem = 360 mg, By Mouth, Daily, # 90 tablet, 0 Refills, Maintenance, 02/19/12 16:21:36 EDT Start Date: 02/19/12 Stop Date: 03/20/23 Status: Ordered Doxepin = 25 mg, By Mouth, Daily at bedtime, 0 Refills, Maintenance, 02/19/12 16:20:58 Start Date: 02/19/12 Status: Ordered famotidine 20 mg oral tablet 40 mg, 2, tablet, By Mouth, Daily at bedtime, # 60 tablet, Refills 0, Maintenance, 12/08/22 11:12:00 EDT, Partial fill upon patient request if the prescription is for a schedule II opioid drug. Start Date: 12/08/22 Status: Ordered Flebogamma 10% intravenous solution 30 grams, IV Infusion, Every 28 days, 0 Refills, Maintenance, 04/11/16 14:48:37 Start Date: 04/11/16 Status: Ordered Flonase 50 mcg/inh nasal spray 1 sprays, Nares, Both, Daily in AM, 0 Refills, Maintenance, 12/08/22 11:15:00 EDT, [place], Partial fill upon patient request if the prescription is for a schedule II opioid drug. 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 Need for hemophilus influenza type B (Hib) vaccine Confirmed Active Obese class I Confirmed Active Tubular adenoma of colon 1 Confirmed 06/27/15 Active 1tubular adenoma of colon in 2020 Diagnosis Diagnosis Type Effective Dates Health Status Clinical Service Informant Obese class I Discharge Diagnosis 12/20/22 Essential hypertension Discharge Diagnosis 12/24/22 Vital Signs Most recent to oldest [Reference Range]: 1 Height 157.4 cm (12/20/22 2:58 PM) Weight 79 kg (12/20/22 2:58 PM) Oxygen Saturation [94-100 %] 99 % (12/20/22 2:58 PM) Pulse Rate [55-90 bpm] 83 bpm (12/20/22 2:58 PM) Body Mass Index [18.5-24.99 kg/m2] 31.89 kg/m2 *>HHI* (12/20/22 2:58 PM) Blood Pressure [90-138/55-84 mm Hg] 125/ 66mm Hg (12/20/22 2:58 PM) Blood pressure sites Arm, right (12/20/22 2:58 PM) Social History Social History Type Response Smoking Status Former smoker entered on: 06/24/14 Sex EKG study * Event Display: ECG 12-Lead Authored Date: Please click on pdf link to open report * Event Display: ECG 12-Lead Authored Date: Ventricular Rate: 76 BPM Atrial Rate: 76 BPM P-R Interval: 156 ms QRS Duration: 94 ms Q-T Interval: 398 ms QTC Calculation(Bazett): 447 ms P [place]: 24 degrees R [place]: 29 degrees T [place]: 59 degrees Normal sinus rhythm with sinus arrhythmia Normal ECG When compared with ECG of 18-JUL-2005 10:53, No significant change was found Confirmed by ORLIN GARCIA MD ([id number]) on 12/20/2022 9:47:52 PM [place]: ORLIN GARCIA MD Cardiology Outpatient Note * Celestine Saenz MD: PERFORM Event Display: Cardiology Note Office Authored Date: Patient: ??ZEE HOLLAND ? Age:??82 Years?Sex:??Female?:??1940?? Indication for Consult NPV History of Present Illness/Interval History It was a pleasure seeing Zee as a new patient consultation. ??She is an 82-year-old female??with a history of paroxysmal atrial fibrillation and??hypertension. ??Her relevant history starts a fewmonths ago. ??She was??visiting her son in [place]??for 6 months. ??She has an apartment there.??She went through a very stressful time. ??Her was hospitalized with a staph skin infection.?Zee then caught RSV??while visiting her in the hospital. ??She was hospitalized and frequent PACs were noted, followed by atrial fibrillation.?? Her diltiazem, which she had been on at 240 mg, was increased to 360 mg.?? After she was discharged from hospitalization with RSV and A-fib??she underwent a Zio patch monitor.?? It showed 7% atrial fibrillation.?? She has been back [facility] for about 3 weeks and??is establishing cardiology??care here.?? Also recently she had a mechanical fall and broke her wrist.?? She currently has a wrist brace on. ? Relevant work-up??while she was in [place] includes??echocardiogram with normal LV size and function, LVEF 55 to 60%, mildly dilated left atrium. ??Normal Lexiscan nuclear stress test. ??Normal PFTs. ?? She is establishing care with a new??PCP??soon, Dr. Lucia. Review of Systems 10+ system ROS performed, pertinent positives and negatives in HPI and below. ??See scanned patientquestionnaire. Physical Exam Vitals & Measurements WI:??83?? BP:??125/66?? SpO2:??99%?? HT:??157.4??cm?? WT:??79??kg?? BMI:??31.89?? Weight lb/oz: 174 lb 3 oz Gen: pleasant, in no distress on room air, BMI elevated in the class I range Resp: lungs clear to auscultation bilaterally CV: normal rate, regular rhythm, no murmurs rubs or gallops. Ext: ??No JVD. ??No lower extremity edema. No carotid bruits.?? Assessment/Plan 82-year-old female with paroxysmal atrial fibrillation,??hypertension,??class I obesity presents toestablish cardiology care after??newly discovered A-fib within the last 6 months??while she was in [place].?? Seems to be well controlled since??diltiazem dose was increased as above.?? She has underwent a fairly extensive cardiac work-up including??echocardiogram,??vasodilator??nuclear stress test,??and PFTs??in [place] as per HPI which were all reassuring. 1.??Afib [id number] equals 3, age times 2+ hypertension.?? Anticoagulation indicated unless contraindication develops. ??Continue Eliquis at current dose. ??Continue diltiazem??at current dose. 2.??Essential hypertension Excellent blood pressure control today on current medications. ??No changes 3.??Obese class I Advised weight loss via diet and exercise. 6-month follow-up with me. ??If things are stable, may be able to space out to yearly follow-up after that. Total Time Spent I personally spent a total of??49 minutes, including both [id number] and qfr-nhmq-fr-face time onthe date of the encounter, addressing the above diagnoses.?? Including reviewing outside records. ?? The above note was prepared with the help of voice recognition software. Please excuse any grammatical or spelling errors that may have occurred. ?? Thank you for involving me in the care of this patient. ??Please do not hesitate to contact me withquestions or concerns. ?? Celestine Saenz MD [facility] [phone] ?? [address] [place] [address] Allergies Percodan cortisone??(flushing, fever) Home Medications Acidophilus, By Mouth, Daily Albuterol (Eqv-ProAir HFA) 90 mcg/inh inhalation aerosol, 2 puffs, Inhalation, Every 6 hours, PRN apixaban 5 mg oral tablet, 5 mg= 1 tablet, By Mouth, 2 times a day, 3 refills atorvastatin 20 mg oral tablet, 20 mg= 1 tablet, By Mouth, Daily benzonatate 100 mg oral capsule, 100 mg= 1 capsule, By Mouth, 3 times a day, PRN Calcium Carbonate, 1000 mg, By Mouth, Daily cetirizine 5 mg oral tablet, 10 mg, By Mouth, Daily, PRN Cranberry oral capsule, 1 capsule, By Mouth, Daily Diltiazem, 360 mg, By Mouth, Daily Doxepin, 25 mg, By Mouth, Daily at bedtime famotidine 20 mg oral tablet, 40 mg= 2 tablet, By Mouth, Daily at bedtime Flonase 50 mcg/inh nasal spray, 1 sprays, Nares, Both, Daily in AM Flovent 110 mcg Inhaler HFA, 2 puffs, Inhalation, 2 times a day Senna 8.6 mg oral tablet, 8.6 mg= 1 tablet, By Mouth, Daily at bedtime Singulair, By Mouth, Daily turmeric 500 mg oral capsule, 500 mg= 1 capsule, By Mouth, Daily Vitamin B12 1000 mcg oral tablet, 1000 mcg= 1 tablet, By Mouth, Daily Vitamin D3 1000 intl units oral tablet, 1000 International_Units= 1 tablet, By Mouth, Daily Lab Results Cardiology Labs WBC: 6.3 k/mm3 (01/11/22) RBC: 4.74 m/mm3 (01/11/22) Hgb: 14.2 Gm/dL (01/11/22) Hct: 43.2 % (01/11/22) MCV: 91.1 femtoliters (01/11/22) MCH: 30 pg (01/11/22) MCHC:??32.9 g/dL??Low (01/11/22) Platelet Count: 258 k/mm3 (01/11/22) RDW-SD: 43.3 femtoliters (01/11/22) Nucleated RBC (Automated): 0 #/100 WBC'S (01/11/22) Abs. Neut: 3.3 k/mm3 (01/11/22) Abs. Lymph: 2.1 k/mm3 (01/11/22) Abs. [place]: 0.6 k/mm3 (01/11/22) Abs. Eo: 0.2 k/mm3 (01/11/22) Abs. Baso: 0.1 k/mm3 (01/11/22) Neut %: 52.5 % (01/11/22) [place] %: 9.9 % (01/11/22) Eos %: 2.7 % (01/11/22) Baso %: 0.8 % (01/11/22) Imm Gran: 0.5 % (01/11/22) Abs. Imm Gran: 0 k/mm3 (01/11/22) Sodium: 140 mmol/L (01/11/22) Potassium: 4.7 mmol/L (01/11/22) Chloride: 104 mmol/L (01/11/22) Bicarbonate Level: 24 mmol/L (01/11/22) Glucose Level: 90 mg/dL (01/11/22) BUN: 18 mg/dL (06/01/22) Creatinine-Blood: 1 mg/dL (06/01/22) Calcium: 9.7 mg/dL (01/11/22) Protein, Total: 7.8 Gm/dL (01/11/22) Albumin: 4.6 Gm/dL (01/11/22) Alkaline Phosphatase:??113 units/L??High (01/11/22) AST (SGOT): 27 units/L (01/11/22) ALT (SGPT): 26 units/L (01/11/22) Bilirubin, Total: 0.4 mg/dL (01/11/22) Diagnostic Impression ECG ECG 12-Lead ?? 14:06:13 Ventricular Rate: 76 BPM Atrial Rate: 76 BPM P-R Interval: 156 ms QRS Duration: 94 ms Q-T Interval: 398 ms QTC Calculation(Bazett): 447 ms P [place]: 24 degrees R [place]: 29 degrees T [place]: 59 degrees Normal sinus rhythm with sinus arrhythmia Normal ECG When compared with ECG of 18-JUL-2005 10:53, No significant change was found Confirmed by ORLIN GARCIA MD ([id number]) on 12/20/2022 9:47:52 PM ?? [place]: ORLIN GARCIA MD ?? Signed By: Orlin Garcia MD ?? ECG 12-Lead ?? 14:06:13 Please click on pdf link to open report ?? 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 Frequency: 1-2 times per week. Type: Wine, Liquor., 06/24/2014 Substance Abuse Use: Never., 06/24/2014 Tobacco Use: Former smoker., 06/24/2014 Tob: quit 55 years ago, smoked for 5 years EtOH: rare No drugs Family History Father: 80s Parkinsons Mother: mother age 90 CHF Brother: in 60s from endocrine cancer; 7 other siblings healthy Children 2: healthy Patient Care team information Care Team Personnel Name: Gideon Vasquez RN Position: [facility] ED RN W/OE and Tasks Member Role: Primary Care Nurse Name: Rosi Blum RN Position: [facility] RN Member Role: Primary Care Nurse Name: Taylor Street RN Position: [facility] RN Supv Member Role: Primary Care Nurse Name: Neela Howell NP Position: [facility] Outreach Member Role: PCP Address: Address: [address] [place] [address]- Name: Montse Boyer RN Position: [facility] SN RN Member Role: Primary Care Nurse Name: Diane Nelson RN Position: [facility] Onco RN Member Role: Primary Care Nurse Care Team Related Persons Name: TIM HENRIQUEZ Name: IVETH HOLLAND Address: [address] [address]
--- OUTSIDE RECORDS SUMMARY | 2024-04-29 17:12 | XMS_ITS | Continuity of Care Document ---
Author Organization [facility] Address [address] [place] [address]- Care Team Providers Care Laborer Hoisting Name Role Phone Khari DAMON, Irena Zhong Primary Care Physician Encounter [facility] [place] Date(s): 11/28/23 - 12/28/23 [facility] [address] [place] [address]- Allergies, Adverse Reactions, Alerts Substance Reaction Severity Status cortisone flushing, fever Active Percodan Active NSAIDs Active Immunizations Given and Recorded Vaccine Date Status Refusal Reason RSV vaccine preF3, recombinant 06/10/23 Recorded SARS-CoV-2(COVID-19)mRNA-LNP vac([id number]) 06/01/23 Recorded influenza virus vaccine, inactivated 05/28/23 [...] influenza virus vaccine, inactivated 07/07/10 Gigi rded [id number] 12y+ bivalent booster vax 05/29/22 Recorded SARS-CoV-2 mRNA ([id number]) vax 01/02/22 Recorded SARS-CoV-2 (COVID-19) mRNA BNT-162b2 [...] 2 times a day, # 180 tablet, 2 Refills, Maintenance, 12/11/23 14:31:00 EDT, Tablet, [facility]/pharmacy #[id number], Partial fill upon patient request if the prescription is for a schedule II opioid drug., 157.4, cm, 07/11/23 14:19:00 ES... Start Date: 12/11/23 Stop Date: 09/06/24 Status: Ordered atorvastatin 20 mg oral tablet See Instructions, TAKE 1 TABLET BY MOUTH EVERY DAY, # 90 tablet, 0 Refills, Maintenance, 11/28/23 8:14:00 EDT, [id number], 157.4, cm, 07/11/23 14:19:00 EST, Height, 79.7, kg, 07/02/23 9:16:00 EST, Dry Weight Start Date: 11/28/23 Status: Ordered Bivigam 1x a month Bivigam [...] mg, By Mouth, Daily, # 90 capsule, 2 Refills, Maintenance, 10/31/23 12:59:00 EST, ER Capsule, [facility]/pharmacy #[id number], Partial fill upon patient request if the prescription is for a schedule II opioid drug., 157.4, cm, 07/11/23 14:19:00 EST... Start Date: 10/31/23 Stop Date: 07/27/24 Status: Ordered doxepin 25 mg oral capsule 2 capsule = 50 mg, By Mouth, Daily at bedtime, # 180 capsule, 1 Refills, Maintenance, 11/07/23 13:10:00 EDT, Capsule, [facility]/pharmacy #[id number], Partial fill upon patient request if the prescription is for a schedule II opioid drug., 157.4, cm, 07/11/23 14:1... Start Date: 11/07/23 Status: Ordered famotidine 40 mg oral tablet [...] Status Informant Afib Confirmed Active CAD in [place] artery Confirmed Active Diverticulosis Confirmed Active Essential [...] Team Personnel Name: Rosi Blum RN Position: [facility] RN Member Role: Primary Care Nurse Name: Irena Lucia MD Position: [facility] Physician - Primary Care Member Role: PCP Address: Address: [address] [place] [address] Primary [place], [place] [address] Name: Montse Boyer RN Position: [facility] SN RN Member Role: Primary Care Nurse Name: Diane Nelson RN Position: [facility] Onco RN Member Role: Primary Care Nurse Name: Kimberly Pabon RN Position: [facility] AMB Nurse Member Role: Primary Care Nurse Care Team Related Persons Name: TIM HENRIQUEZ Name: IVETH HOLLAND Address: [address] [address]
--- OUTSIDE RECORDS SUMMARY | 2024-04-29 17:12 | XMS_ITS | Continuity of Care Document ---
Author Organization [facility] Address [address] [place] [address]- Care Team Providers Care Automated Manufacturing Instructor Name Role Phone Dante SANTIAGO, Neela Garcia Primary Care Physician Encounter [facility] Date(s): 01/04/22 - 02/03/22 [facility] [address] [place] [address]- Attending Physician: Maria Teresa Westbrook Admitting Physician: [...]
[2024-04-29 17:13] LABS: MANUAL DIFF FLAG NO
--- OUTSIDE RECORDS SUMMARY | 2024-04-29 17:13 | XMS_ITS | Continuity of Care Document ---
Author Organization [facility] Address [address] [place] [address]- Care Team Providers Care Fire Fighters Dispatcher Name Role Phone Khari DAMON, Irena Zhong Primary Care Physician Encounter [facility] [place] Date(s): 12/11/23 - 01/10/24 [facility] [address] [place] [address]- Referring Physician: Yue Alarcon Allergies, Adverse Reactions, Alerts Substance Reaction Severity Status cortisone flushing, fever Active NSAIDs Active Percodan Active Immunizations Given and Recorded Vaccine Date Status Refusal Reason RSV vaccine preF3, recombinant 06/10/23 Recorded SARS-CoV-2(COVID-19)mRNA-LNP vac([id number]) 06/01/23 Recorded influenza virus vaccine, inactivated 05/28/23 [...] influenza virus vaccine, inactivated 07/07/10 Gigi rded [id number] 12y+ bivalent booster vax 05/29/22 Recorded SARS-CoV-2 mRNA ([id number]) vax 01/02/22 Recorded SARS-CoV-2 (COVID-19) mRNA BNT-162b2 [...] 2 Refills, Maintenance, 12/11/23 14:31:00 EDT, Tablet, [facility]/pharmacy #[id number], Partial fill upon patient request if the prescription is for a schedule II opioid drug., 157.4, cm, 07/11/23 14:19:00 ES... Start Date: 12/11/23 Stop Date: 09/06/24 Status: Ordered Arnuity Ellipta 100 mcg inhalation powder 1 puffs = 100 mcg, Inhalation, Every 24 hours, # 30 each, 0 Refills, Maintenance, 01/06/24 11:22:00EDT, Powder, Partial fill upon patient request if the prescription is for a schedule II opioid drug. Start Date: 01/06/24 Status: Ordered atorvastatin 20 mg oral tablet See Instructions, TAKE 1 TABLET BY MOUTH EVERY DAY, # 90 tablet, 0 Refills, Maintenance, 11/28/23 8:14:00 EDT, [facility], 157.4, cm, 07/11/23 14:19:00 EST, Height, 79.7, [...] Refills, Maintenance, 10/31/23 12:59:00 EST, ER Capsule, [facility]/pharmacy #[id number], Partial fill upon patient request if the prescription is for a schedule II opioid drug., 157.4, cm, 07/11/23 14:19:00 EST... Start Date: 10/31/23 Stop Date: 07/27/24 Status: Ordered doxepin 25 mg oral capsule 2 capsule = 50 mg, By Mouth, Daily at bedtime, # 180 capsule, 1 Refills, Maintenance, 11/07/23 13:10:00 EDT, Capsule, [facility]/pharmacy #[id number], Partial fill upon patient request [...] 04/11/16 14:48:37 Start Date: 04/11/16 Status: Ordered Senna 8.6 mg oral tablet [...] Status Informant Afib Confirmed Active CAD in [place] artery Confirmed Active Diverticulosis Confirmed Active Essential [...] Team Personnel Name: Rosi Blum RN Position: [facility] RN Member Role: Primary Care Nurse Name: Irena Lucia MD Position: [facility] Physician - Primary Care Member Role: PCP Address: Address: [address] [place] [address] [place], [place] [address] Name: Montse Boyer RN Position: [facility] SN RN Member Role: Primary Care Nurse Name: Diane Nelson RN Position: [facility] Onco RN Member Role: Primary Care Nurse Name: Kimberly Pabon RN Position: [facility] AMB Nurse Member Role: Primary Care Nurse Care Team Related Persons Name: TIM HENRIQUEZ Name: IVETH HOLLAND Address: [address] [address]
--- OUTSIDE RECORDS SUMMARY | 2024-04-29 17:13 | XMS_ITS | Continuity of Care Document ---
Author Organization [facility] Address [address] [place] [address]- Care Team Providers Care Tobacco Roller Name Role Phone Khari DAMON, Irena Zhong Primary Care Physician Encounter [facility] [place] Date(s): 08/28/23 - 09/27/23 [facility] [address] [place] [address]- [place] Allergies, Adverse Reactions, Alerts Substance Reaction Severity Status cortisone flushing, fever Active NSAIDs Active Percodan Active Immunizations Given and Recorded Vaccine Date Status Refusal Reason RSV vaccine preF3, recombinant 06/10/23 Recorded SARS-CoV-2(COVID-19)mRNA-LNP vac([id number]) 06/01/23 Recorded influenza virus vaccine, inactivated 05/28/23 [...] influenza virus vaccine, inactivated 07/07/10 Gigi rded [id number] 12y+ bivalent booster vax 05/29/22 Recorded SARS-CoV-2 mRNA ([id number]-ffsuf) vax 01/02/22 Recorded SARS-CoV-2 (COVID-19) mRNA BNT-162b2 [...] 0 Refills, Maintenance, 09/06/23 13:09:00 EST, Tablet, [facility]/pharmacy #[id number], Partial fill upon patient request if the prescription is for a schedule II opioid drug., 157.4, cm, 07/11/23 14:19:00 EST... Start Date: 09/06/23 Stop Date: 12/05/23 Status: Ordered atorvastatin 20 mg oral tablet 1 tablet = 20 mg, By Mouth, Daily, # 30 tablet, 6 Refills, Maintenance, 06/20/23 8:30:00 EDT, Tablet, [facility]/pharmacy #[id number], Partial fill upon patient request if [...] 0 Refills, Maintenance, 09/27/23 14:30:00 EST, Capsule, [facility]/pharmacy #[id number], Partial fill upon patient request if [...] Status Informant Afib Confirmed Active CAD in [place] artery Confirmed Active Diverticulosis Confirmed Active Essential [...] Care Nurse Name: Irena Lucia MD Position: [facility] Physician - Primary Care Member Role: PCP Address: Address: [address] [place] [address] [place] [address]- Name: Montse Boyer RN Position: [facility] SN RN Member Role: Primary Care Nurse Name: Diane Nelson RN Position: [facility] Onco RN Member Role: Primary Care Nurse Name: Kimberly Pabon RN Position: [facility] SN RN Member Role: Primary Care Nurse Care Team Related Persons Name: TIM HENRIQUEZ Name: IVETH HOLLAND Address: [address] [address]
--- OUTSIDE RECORDS SUMMARY | 2024-04-29 17:13 | XMS_ITS | Continuity of Care Document ---
Author Organization [facility] Address [address] [place] [address]- Care Team Providers Care Can Filling And Closing Machine Tender Name Role Phone Dante SANTIAGO, Neela Garcia Primary Care Physician [id number] Date(s): 01/04/22 - 05/26/22 [facility] [address] [place] [address]- Discharge Disposition: A-D/C Home Attending Physician: Mary Ellen DAMON(Hem/Onc), Chase Krishnamurthy Admitting Physician: Mary Ellen DAMON(Hem/Onc)Chase Referring Physician: Dante SANTIAGO, Neela Garcia Allergies, [...] oldest [Reference Range]: 1 Height 157.4 cm (01/11/22 8:53 AM) Weight 78.5 kg (01/11/22 8:53 AM) Pulse Rate [55-90 bpm] 79 bpm (01/11/22 8:53 AM) Body Mass Index [18.5-24.99] 31.69 *>HHI* (01/11/22 8:53 AM) Blood Pressure [90-138/55-84 mm Hg] 128/ 58mm Hg (01/11/22 8:53 AM) Temperature [96.8-100.4 DegF] 96.9 DegF (01/11/22 8:53 AM) Blood pressure sites Arm, right (01/11/22 8:53 AM) Temperature Route Temporal (01/11/22 8:53 AM) Dry Weight 78.5 kg (01/11/22 8:53 AM) Weight Obtained Via Standing scale (01/11/22 8:53 AM) Dry Weight Obtained Via Standing scale (01/11/22 8:53 AM) Social History Social History Type Response Smoking Status Former smoker entered on: 06/24/14 Sex Patient Care team information Personnel Name: Neela Howell NP Address: Address: [address] [place] [address]
--- OUTSIDE RECORDS SUMMARY | 2024-04-29 17:13 | XMS_ITS ---
Author Organization [facility] Address [address] [place] [id number] Care Team Providers Care Inside Meter Tester Name Role Phone SKIP VALERO Primary Care Provider [phone] REASON FOR VISIT Refills MEDICATIONS Medication SIG (Take, Route, Frequency, Duration) Notes Start Date End Date Status Doxepin HCl 25 MG 2 caps Oral Once a d ay for 30 days doxepin 25 mg capsule 07/17/2022 Active Encounters Encounter Location Date Provider Diagnosis [address] [phone] 04/01/2023 SKIP VALERO PLAN OF TREATMENT Medication Medication Name Sig Start Date Stop Date Notes Doxepin HCl 25 MG 2 caps Oral Once a d ay for 30 days 07/17/2022 doxepin 25 mg capsul e Progress Notes * NICHOLAS HOLLANDEDOB:1939 (82 yo F)Acc No.[id number]:04/01/2023 Patient:??ZEE HOLLAND :1940?Age:82 Y?Sex:Fe male Phone: Address: [place] [address] * Refills?? Refill Doxepin HCl Capsule, 25 MG, Oral, 60 Capsule, 2 caps, Once a day, 30 days, Refills=0 * true * Date:??
--- OUTSIDE RECORDS SUMMARY | 2024-04-29 17:13 | XMS_ITS ---
Author Organization [facility] Address [address] [facility] [address] [place] [address] Care Team Providers Care Sole Leveler Machine Name Role Phone Irena Lucia Primary Care Provider ANA Hood Unavailable [phone] ALLERGIES Allergen (clinical drug ingredient) Drug/Non Drug Allergy documented on EMR Reaction Allergy Type Onset Date Status Percodan Unknown Drug Allergy Active cortisone Cortisone flushing, fever Drug Allergy A ctive Non-steroidal anti-inflammatory agent (FN) NSAIDs Unknown Drug Allergy Active REASON FOR VISIT Rt foot pain for 2 months and recent left foot injury MEDICATIONS Medication SIG (Take, Route, Frequency, Duration) Notes Start Date End Date Status Fluticasone Propionate HFA 220 MCG/ACT 1 puff Inhalation Twice a day Active Gammagard 30 GM/300ML as directed Injection every 28 days Active Famotidine 40 MG 1 tablet at bedtime Orally Once a day Active Flebogamma 10% IV infusion every 28 days Active Senna 8.6 MG 1 tablet at bedtime as needed Orally Once a day Not-Taking Albuterol Sulfate 108 (90 Base) MCG/ACT 1 puff as needed Inhalation every 4 hrs Active Apixaban 5 MG 1 tablet Orally Twice a day Active Acidophilus - as directed Orally Not-Taking Atorvastatin Calcium 20 MG 1 tablet Orally Once a day Active Singulair Active Calcium Carbonate 1000MG No t-Taking Cetirizine HCl 10 MG 1 tablet Orally Once a day Active Bivigam IV once a month Acti ve dilTIAZem HCl ER Beads 360 MG 1 capsule Orally Once a day Active Cranberry Active Doxepin HCl 50 MG 1 capsule at bedtime Orally Once a day Active VITAL SIGNS Weight 174.0 lbs 12/31/2023 Height 5ft 2in in 12/31/2023 BMI 31.82 kg/m2 12/31/2023 Heart Rate 86 /min 12/31/2023 Temperature 96.1 degrees Fahrenheit 12/31/19 Respiratory Rate 16 /min 12/31/2023 Encounters Encounter Location Date Provider Diagnosis [facility] [address] [place] [address] 12/31/2023 ANA PACHECOALLEY Acquired deformity of right toe M20.61 ; Arthrosis of foot, right M19.071 and Contusion of left foot, initial encounter S90.32XA ASSESSMENTS Encounter Date Diagnosis Assessment Notes Treatment Notes Treatment Clinical Notes 12/31/2023 Acquired deformity of right toe (ICD-10 - M20.61) This is an outpatient visit for evaluation and management of a new patient, which required appropriate review of pertinent medical history, review of any previous imaging, review of all previous records, and examination and decision-making. Time was 30 minutes spent in review of all these facets including face to face discussion with the patient regarding my findings and in discussion of a current and future treatment plan. Three weightbearing radiographs of the right and left foot were taken in the office today and reviewed with the patient. She has had intermittent pain around the right 4th MTP over the past two months. This is likely related to the increase pressure form the overlapping 5th toe. She also has some mild degenerative joint changes. I advised she continue to wear supportive shoe gear. She also sustained a soft tissue contusion to the top of the left foot 2 weeks ago. No acute bony injuries on radiographs. I discussed with her that the dorsal cutaneous nerves will give off radiating symptoms due to the soft tissue swelling. This should slowly improve with time. She can ice and elevate as needed. I encouraged her to call if she has any additional questions or concerns. 12/31/2023 Arthrosis of foot, right (ICD-10 - M19.071) 12/31/2023 Contusion of left foot, initial encounter (ICD-10 - S90.32XA) PLAN OF TREATMENT Treatment Notes Assessment Notes Acquired deformity of right toe This is an outpatient visit for evaluation and management of a new patient, which required appropriate review of pertinent medical history, review of any previous imaging, review of all previous records, and examination and decision-making. Time was 30 minutes spent in review of all these facets including face to face discussion with the patient regarding my findings and in discussion of a current and future treatment plan. Three weightbearing radiographs of the right and left foot were taken in the office today and reviewed with the patient. She has had intermittent pain around the right 4th MTP over the past two months. This is likely related to the increase pressure form the overlapping 5th toe. She also has some mild degenerative joint changes. I advised she continue to wear supportive shoe gear. She also sustained a soft tissue contusion to the top of the left foot 2 weeks ago. No acute bony injuries on radiographs. I discussed with her that the dorsal cutaneous nerves will give off radiating symptoms due to the soft tissue swelling. This should slowly improve with time. She can ice and elevate as needed. I encouraged her to call if she has any additional questions or concerns. Progress Notes * Marie DIAZeDOB:1939 (83 yo F)Acc No.[id number]:12/31/2023 Consult note Patient:??Genny DIAZ Provider:??Ana Graham DPSimon :1940?Age:83 Y?Sex:Fe male Date:12/31/2023 Address:[address] [place] [id number] Pcp:Irena Lucia Subjective: * Chief Complaints: * ?Rt foot pain for 2 mon ths and recent left foot injury * HPI: ?Foot & Ankle:? Ms. Diaz is a pleasant 83 year old female who presents for a consultation. She has been having on and off pain around the right 4th toe for two months. She finds that it seems triggered by certain shoe gear. She has had no recent injuries to the right 4th toe, but admits to fracturing both feet in the past. She has not noticed any swelling or discoloration to the right foot. She finds that the pain seems to go away when she is in her walking shoes. She also recently dropped a weighted band onto the top of her left foot while at her swimming class. This happened about 2 weeks ago. Since then she has had some pain to the top of the foot that radiates to the ankle region. She has not noticed much swelling, but admits to some bruising. She wants to make sure she did not fracture anything. * ROS:?General/Constitutional:?Denies??Chills.??Denies??Fatigue.??Denies??Fever.??Denies??Headache. ?Allergy/Immunology:?Denies??Hives.??Denies??Itching.??Denies??Rash.?Endocrine:?Denies??Excessive sweating.??Denies??Excessive thirst.??Denies??Frequent urination.?Respiratory:?Denies??Cough.??Denies??Shortness of breath,??denies.??Denies??Wheezing.?Cardiovascular:?Denies??Chest pain.??Denies??Claudication.??Denies??Cyanosis.?Gastrointestinal:?Denies??Abdominal pain.??Denies??Constipation.??Denies??Diarrhea.?Hematology:?Denies??Bleeding problems,??denies.??Denies??Easy bruising,??denies.??Denies??Swollen glands.?Musculoskeletal:?Patient complaining of??pain around the right 4th toe and pain to the top of the left foot.??Admits??Arthritis/Arthralgia.??Denies??Joint stiffness.??Denies??Leg cramps.?Peripheral Vascular:?Denies??Blanching of skin.??Blood clots in legs??Denies.??Denies??Cold extremities.?Skin:?Denies??Masses.??Denies??Nail changes.??Denies??Skin lesion(s).?Neurologic:?Denies??Paralysis.??Denies??Tingling/Numbness.??Denies??Tremor.?Psychiatric:?Denies??Auditory/visual hallucinations.??Denies??Delusions.??Denies??Suicidal thoughts.? * Medical History:?? 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 .?? * Social History:?Tobacco: former smoker Alcohol: yes, socially Retired lives with . * Medications:??TakingSingulai r Gammagard 30 GM/300ML Solution as directed Injection , Notes to Pharmacist: every 28 daysFluticasone Propionate HFA 220 MCG/ACT Aerosol 1 puff Inhalation Twice a day Flebogamma , Notes to Pharmacist: 10% IV infusion every 28 daysFamotidine 40 MG Tablet 1 tablet at bedtime Orally Once a day Doxepin HCl 50 MG Capsule 1 capsule at bedtime Orally Once a day dilTIAZem HCl ER Beads 360 MG Capsule Extended Release 24 Hour 1 capsule Orally Once a day Cranberry Cetirizine HCl 10 MG Tablet 1 tablet Orally Once a day Bivigam , Notes to Pharmacist: IV once a monthAtorvastatin Calcium 20 MG Tablet 1 tablet Orally Once a day Apixaban 5 MG Tablet 1 tablet Orally Twice a day Albuterol Sulfate 108 (90 Base) MCG/ACT Aerosol Powder Breath Activated 1 puff as needed Inhalation every 4 hrs Taking Singulair Taking Gammagard 30 GM/300ML Solution as directed Injection , Notes to Pharmacist: every 28 daysTaking Fluticasone Propionate HFA 220 MCG/ACT Aerosol 1 puff Inhalation Twice a day Taking Flebogamma , Notes to Pharmacist: 10% IV infusion every 28 daysTaking Famotidine 40 MG Tablet 1 tablet at bedtime Orally Once a day Taking Doxepin HCl 50 MG Capsule 1 capsule at bedtime Orally Once a day Taking dilTIAZem HCl ER Beads 360 MG Capsule Extended Release 24 Hour 1 capsule Orally Once a day Taking Cranberry Taking Cetirizine HCl 10 MG Tablet 1 tablet Orally Once a day Taking Bivigam , Notes to Pharmacist: IV once a monthTaking Atorvastatin Calcium 20 MG Tablet 1 tablet Orally Once a day Taking Apixaban 5 MG Tablet 1 tablet Orally Twice a day Taking Albuterol Sulfate 108 (90 Base) MCG/ACT Aerosol Powder Breath Activated 1 puff as needed Inhalation every 4 hrs Not-TakingSenna 8.6 MG Tablet 1 tablet at bedtime as needed Orally Once a day Calcium Carbonate , Notes to Pharmacist: 1000MGAcidophilus - Capsule as directed Orally Medication List reviewed and reconciled with the patientNot-Taking Senna 8.6 MG Tablet 1 tablet at bedtime as needed Orally Once a day Not-Taking Calcium Carbonate , Notes to Pharmacist: 1000MGNot-Taking Acidophilus - Capsule as directed Orally Medication List reviewed and reconciled with the patient * Allergies:??NSAIDsPercodanCo rtisone: flushing, feverno[Allergies Verified] Objective: * Vitals:??Wt: 174.0 lbs, Ht: 5ft 2in, BMI: 31.82 Index, HR: 86 /min, Temp: 96.1 F, RR: 16 /min, Ht-cm: 157.48, Wt-k.93 kg. * Examination: ?General Examination: ?This is an elderly female. Alert and oriented today and in no acute distress. Patient comes in ambulating in dress shoes without using any assistive devices. Breathing is regular and unlabored while sitting. Affect is pleasant and cooperative. No unusual anxiety or depression noted. Hearing intact to spoken word. No evidence of visual impairment that would impact self care or ambulation. Patient has palpable dorsalis pedis and posterior tibial pulse bilaterally. Small spider varicosities visualized. Senile purpura present to the anterior lower right leg. Dermal atrophy to both lower extremities with no hair growth. Capillary refill is less than 3 seconds to all digits bilaterally. Light touch sensation is symmetrical to all lower extremity dermatomes. Babinski is downgoing. There are no open wounds or rashes. There is a severe adductovarus rotation deformity of the 5th toe bilaterally causing the fourth toe to overlap dorsally. There is tenderness with pressure to the dorsal medial aspect of the right 4th toe joint with palpable hypertrophy of the joint. No pain with range of motion of the right 4th MPJ. No edema or erythema of the joint. There is tenderness along the dorsal lateral aspect of the left midfoot with mild fading ecchymosis. No edema or erythema. There is a mild hallux valgus deformity present on the left. Subtalar and ankle joint range of motion are unrestricted. 5/5 strength for anterior, posterior, and lateral lower extremity muscle groups on the left and right. Gastrocnemius equinus present bilaterally. 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 Plan: * Treatment: * Procedures:?RIGHT AND LEFT FOOT RADIOGRAPHS 12/31/2023 3 weight bearing views of each foot (AP, LAT, LO PROJECTION/MO VIEW) Taken in the office and read by the physician. Mild osteopenia present to both feet. There are no acute fractures or dislocations. No abnormal bone lesions or tumors. There is mild joint space narrowing and sclerosis at the right 1st metatarsal phalangeal joint. There is an adductovarus rotation of the right and left 5th toes. Old left 5th metatarsal shaft fracture with cortical thickening. Left hallux valgus deformity with 1st MPJ sclerosis and narrowing. There is narrowing, sclerosis, and subchondral cysts present in the lesser PIPJs and DIPJs bilaterally. There is narrowing and sclerosis to the tarsometatarsal joints and naviculocuneiform joints bilaterally. Plantar and posterior enthesophytes present to the left calcaneus and plantar right calcaneus. No radio opaque foreign bodies in either foot. ? * Procedure Codes:??76946 X-RA Y EXAM OF FOOT 3 Views, Modifiers: RT [address]146 X-RAY EXAM OF FOOT 3 Views, Modifiers: LT * Billing Information: * Visit Code:?? 68784 Office Visit, New Pt., Level 3. * Procedure Codes:?? 30367 X-RAY EXAM OF FOOT 3 Views. Modifiers: [place] [address]20 X-RAY EXAM OF FOOT 3 Views. Modifiers: LT * Sign off status: Completed true * Provider:??Ana Graham DPSimon Date:??02/2024
--- OUTSIDE RECORDS SUMMARY | 2024-04-29 17:13 | XMS_ITS ---
Author Organization [facility] Address [address] [address] Care Team Providers Care Hydraulic Design Engineer Name Role Phone Irena Lucia Primary Care Provider MANSI Hood Unavailable [phone] REASON FOR VISIT Medical Records Encounters Encounter Location Date Provider Diagnosis [facility] [address] [address] 12/16/2023 MANSI EVANS PLAN OF TREATMENT No Information Progress Notes * Marie DIAZeDOB:1939 (83 yo F)Acc No.[id number]:12/16/2023 Patient:??AMALIA Genny :1940?Age:83 Y?Sex:Fe male Phone: [facility] [place] [address] * true * Date:??
--- OUTSIDE RECORDS SUMMARY | 2024-04-29 17:13 | XMS_ITS | Continuity of Care Document ---
Author Organization [facility] Address [address] [place] [address] [address] [place] [address]- Care Team Providers Care Chief Yeoman Name Role Phone Khari DAMON, Irena Zhong Primary Care Physician [place] [facility] [place]): [place]24 - 04/07/[address] [place] [address]- Encounter Diagnosis Hemorrhoids(Discharge Diagnosis) - 03/31/24 Attending Physician: Sebastián DAMON, Emi Montes Referring Physician: Not on Staff, Referring MD Allergies, Adverse Reactions, Alerts Substance Reaction Severity Status cortisone flushing, fever Active Percodan Active NSAIDs Active Immunizations Given and Recorded Vaccine Date Status Refusal Reason RSV vaccine preF3, recombinant 06/10/23 Recorded SARS-CoV-2(COVID-19)mRNA-LNP vac([id number]) 06/01/23 Recorded influenza virus vaccine, inactivated 05/28/23 [...] influenza virus vaccine, inactivated 07/07/10 Gigi rded [id number] 12y+ bivalent booster vax 05/29/22 Recorded SARS-CoV-2 mRNA ([id number]) vax 01/02/22 Recorded SARS-CoV-2 (COVID-19) mRNA BNT-162b2 [...] 2 Refills, Maintenance, 12/11/23 14:31:00 EDT, Tablet, [facility]/pharmacy #[id number], Partial fill upon patient request [...] Ordered atorvastatin 20 mg oral tablet 1 tablet, By Mouth, Daily, # 90 tablet, 0 Refills, Maintenance, 02/18/24 15:56:00 EDT, [id number], 157.4, cm, 01/06/24 11:24:00 EDT, Height, 79.2, kg, 02/14/24 10:30:00 EDT, Dry Weight Start Date: 02/18/24 Status: Ordered atorvastatin 20 mg oral tablet See Instructions, TAKE 1 TABLET BY MOUTH EVERY DAY, # 90 tablet, 0 Refills, Maintenance, 11/28/23 8:14:00 EDT, [id number], 157.4, cm, 07/11/23 14:19:00 EST, Height, 79.7, [...] Refills, Maintenance, 10/31/23 12:59:00 EST, ER Capsule, [facility]/pharmacy #[id number], Partial fill upon patient request if the prescription is for a schedule II opioid drug., 157.4, cm, 07/11/23 14:19:00 EST... Start Date: 10/31/23 Stop Date: 07/27/24 Status: Ordered doxepin 25 mg oral capsule 2 capsule = 50 mg, By Mouth, Daily at bedtime, # 180 capsule, 1 Refills, Maintenance, 11/07/23 13:10:00 EDT, Capsule, [facility]/pharmacy #[id number], Partial fill upon patient request [...] 04/11/16 14:48:37 Start Date: 04/11/16 Status: Ordered hydrocortisone 2.5% topical cream See Instructions, Rectally 2 times a day for 2 weeks, stop for 2 weeks and then use 2 more weeks and stop, # 30 Gm, 3 Refills, Acute 04/14/24 10:59:00 EDT, 03/31/24 10:57:00 EDT, [facility]/pharmacy #[id number], Partial fill upon patient request if the prescriptio... Start Date: 03/31/24 Stop Date: 04/14/24 Status: Ordered Senna 8.6 mg oral tablet [...] Status Informant Afib Confirmed Active CAD in [place] artery Confirmed Active Diverticulosis Confirmed Active Essential hypertension Confirmed Active Fibromyalgia Confirmed Active Hemorrhoids Confirmed Active Hypercholesteremia Confirmed Active IgG monoclonal [...] Dates Health Status [facility] Service Informant Hemorrhoids Discharge Diagnosis 03/31/24 Vital Signs Most recent to oldest [Reference Range]: 1 Height 157.4 cm (03/31/24 9:59 AM) Weight 80.8 kg (03/31/24 9:59 AM) Pulse Rate [55-90 bpm] 92 bpm *H* (03/31/24 9:59 AM) Body Mass Index [18.5-24.99 kg/m2] 32.61 kg/m2 *>HHI* (03/31/24 9:59 AM) Blood Pressure [90-138/55-84 mm Hg] 153/ 83mm Hg *H* (03/31/24 9:59 AM) Temperature [96.8-100.4 DegF] 98.2 DegF (03/31/24 9:59 AM) Temperature Route Temporal (03/31/24 9:59 AM) Social History Social History Type Response Smoking Status Former smoker entered on: 06/24/14 Sex Patient Care team information Care Team Personnel Name: Rosi Blum RN Position: [facility] RN Member Role: Primary Care Nurse Name: Irena Lucia MD Position: [facility] Physician - Primary Care Member Role: PCP Address: Address: [address] [place] [address] Name: Montse Boyer RN Position: [facility] SN RN Member Role: Primary Care Nurse Name: Diane Nelson RN Position: [facility] Onco RN Member Role: Primary Care Nurse Name: Kimberly Pabon RN Position: [facility] AMB Nurse Member Role: Primary Care Nurse Name: Ilene Love RN Position: [facility] RN Member Role: Primary Care Nurse Care Team Related Persons Name: TIM HENRIQUEZ Name: IVETH HOLLAND Address: [address] [address]
--- OUTSIDE RECORDS SUMMARY | 2024-04-29 17:13 | XMS_ITS | Patient Health Record ---
Author Organization [facility] Address [address] [facility] [place] [address] Care Team Providers Care Web Production Artist Name Role Phone Irena Lucia Primary Care Provider MANSI Hood Unavailable [phone] ALLERGIES Allergen (clinical drug ingredient) Drug/Non Drug Allergy documented on EMR Reaction Allergy Type Onset Date Status Percodan Unknown Drug Allergy Active cortisone Cortisone flushing, fever Drug Allergy A ctive Non-steroidal anti-inflammatory agent (FN) NSAIDs Unknown Drug Allergy Active REASON FOR REFERRAL No Information MEDICATIONS Medication SIG (Take, Route, Frequency, Duration) Notes Start Date End Date Status Fluticasone Propionate HFA 220 MCG/ACT 1 puff Inhalation Twice a day Active Albuterol Sulfate 108 (90 Base) MCG/ACT 1 puff as needed Inhalation every 4 hrs Active Gammagard 30 GM/300ML as directed Injection every 28 days Active Apixaban 5 MG 1 tablet Orally Twice a day Active Famotidine 40 MG 1 tablet at bedtime Orally Once a day Active Flebogamma 10% IV infusion every 28 days Active Acidophilus - as directed Orally Not-Taking Calcium Carbonate 1000MG No t-Taking Cetirizine HCl 10 MG 1 tablet Orally Once a day Active Senna 8.6 MG 1 tablet at bedtime as needed Orally Once a day Not-Taking Atorvastatin Calcium 20 MG 1 tablet Orally Once a day Active Singulair Active Bivigam IV once a month Acti ve dilTIAZem HCl ER Beads 360 MG 1 capsule Orally Once a day Active Doxepin HCl 50 MG 1 capsule at bedtime Orally Once a day Active Cranberry Active VITAL SIGNS Heart Rate 86 /min 12/31/2023 Temperature 96.1 degrees Fahrenheit 12/31/2023 Respiratory Rate 16 /min 12/31/2023 Height 5ft 2in in 12/31/2023 Weight 174.0 lbs 12/31/2023 BMI 31.82 kg/m2 12/31/2023 Encounters Encounter Location Date Provider Diagnosis [facility] [address] [address] 12/31/2023 MANSI EVANS Acquired deformity of right toe M20.61 ; Arthrosis of foot, right M19.071 and Contusion of left foot, initial encounter S90.32XA [facility] [address] [address] 12/16/2023 MANSI EVANS ASSESSMENTS Encounter Date Diagnosis Assessment Notes Treatment [...] encounter (ICD-10 - S90.32XA) PLAN OF TREATMENT No Information Insurance Providers Payer Name Payer Address Payer Phone Subscriber Number Group Number Insured Name Patient Relationship to Insured Coverage Start Date Coverage End Date Medicare of [place] [address] JUAN WRIGHT [phone] [id number] Genny Lee i Self - patient is the insured [place] [address] [place] ALARCON [phone] [id number] Genny Lee i Self - patient is the insured MEDICAL (GENERAL) HISTORY Medical History History ICD Code Afib CAD in [place] artery chronic anticoagulation diverticulosis hypertension fibromyalgia hepatic steatosis hypercholesterolemia 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
--- OUTSIDE RECORDS SUMMARY | 2024-04-29 17:13 | XMS_ITS | Continuity of Care Document ---
Author Organization [facility] Address [address] [place] [address]- Care Team Providers Care Logging Contractor Name Role Phone Khari DAMON, Irena Zhong Primary Care Physician Encounter [facility] Date(s): 06/19/23 - 07/19/23 [facility] [address] [place] [address]- Allergies, Adverse Reactions, Alerts Substance Reaction Severity Status cortisone flushing, fever Active Percodan Active NSAIDs Active Immunizations Given and Recorded Vaccine Date Status Refusal Reason RSV vaccine preF3, recombinant 06/10/23 Recorded SARS-CoV-2(COVID-19)mRNA-LNP vac([id number]) 06/01/23 Recorded influenza virus vaccine, inactivated 05/28/23 [...] influenza virus vaccine, inactivated 07/07/10 Gigi rded [id number] 12y+ bivalent booster vax 05/29/22 Recorded SARS-CoV-2 mRNA ([id number]) vax 01/02/22 Recorded SARS-CoV-2 (COVID-19) mRNA BNT-162b2 [...] 6 Refills, Maintenance, 06/20/23 8:30:00 EDT, Tablet, [facility]/pharmacy #[id number], Partial fill upon patient [...] Status Informant Afib Confirmed Active CAD in [place] artery Confirmed Active Diverticulosis Confirmed Active Essential [...] Team Personnel Name: Rosi Blum RN Position: [facility] RN Member Role: Primary Care Nurse Name: Irena Lucia MD Position: [facility] Physician - Primary Care Member Role: PCP Address: Address: [address] [place] [address] [place] [address]- Name: Montse Boyer RN Position: [facility] SN RN Member Role: Primary Care Nurse Name: Diane Nelson RN Position: [facility] Onco RN Member Role: Primary Care Nurse Name: Kimberly Pabon RN Position: [facility] SN RN Member Role: Primary Care Nurse Care Team Related Persons Name: TIM HENRIQUEZ Name: IVETH HOLLAND Address: [address] [address]
--- OUTSIDE RECORDS SUMMARY | 2024-04-29 17:13 | XMS_ITS | Patient Health Record ---
Author Organization [facility] Address [address], [place] [id number] Care Team Providers Care Cook Chief Name Role Phone SKIP VALERO Primary Care Provider REASON FOR REFERRAL No Information MEDICATIONS Medication SIG (Take, Route, Frequency, Duration) Notes Start Date End Date Status dilTIAZem HCl ER Coated Beads 240 MG Take 1 cap orally once daily in the evening as directed Oral dilTIAZem CD 240 mg capsule,extended release 24 hr 06/06/2022 Active Doxepin HCl 25 MG 2 caps Oral Once a day for 90 days Active Macrobid 100 MG Take one tablet by mouth every 12 hours for 5 days. Oral Macrobid 100 mg capsule 06/11/2022 Active Montelukast Sodium 10 MG Take 1 tab orally once daily as directed Oral montelukast 10 mg tablet 06/06/2022 Active SOCIAL HISTORY Sex Assigned At : Social History Observation Description Sex Assigned At Unknown Encounters Encounter Location Date Provider Diagnosis [facility] [address], [place] [id number] 06/10/2023 SKIP VALERO PLAN OF TREATMENT No Information Insurance Providers Payer Name Payer Address Payer Phone Subscriber Number Group Number Insured Name Patient Relationship to Insured Coverage Start Date Coverage End Date Medicare [address] [place] [address] [phone] [id number] ZEE SCHWARTZ Self - patient is the insured REED [address] [place] [phone] [id number] ZEE SCHWARTZ Self - patient is the insured
--- OUTSIDE RECORDS SUMMARY | 2024-04-29 17:13 | XMS_ITS ---
Author Organization [facility] Address [address] [place], [place] [id number] Care Team Providers Care Brim Edge Trimmer Name Role Phone SKIP HOWELL Primary Care Provider REASON FOR VISIT Annual CPE Encounters Encounter Location Date Provider Diagnosis [facility], [address] [id number] 06/10/2023 SKIP HOWELL PLAN OF TREATMENT No Information Progress Notes * NICHOLAS HOLLANDEDOB:1939 (83 yo F)Acc No.[id number]:06/10/2023 Progress Note Patient:??ZEE HOLLAND Provider:??Skip Howell DNP :1940?Age:83 Y?Sex:Fe male Date:06/10/2023 Phone: [facility] [place] Subjective: * Chief Complaints: * ?1. Annual CPE. * Medical History:?? Objective: Assessment: Plan: * Treatment: Care Plan: * Problems:?? * Billing Information: * Visit Code:?? * Procedure Codes:?? * Sign off status: Pending * Provider:??Skip Howell DNP Date:??1
[2024-04-29 17:29] LABS: Alanine Aminotransferase 29 U/L (0-31); Albumin Level 4.2 g/dL (3.5-5.0); Alkaline Phosphatase 92 U/L (39-117); Anion Gap 13 (12-20); Aspartate Amino Transferase 32 U/L (5-31); Bilirubin Direct 0.2 mg/dL (0.0-0.5); Bilirubin Total 0.5 mg/dL (0.0-1.0); Blood Urea Nitrogen 22 mg/dL (9-16); Calcium 9.4 mg/dL (8.4-10.2); Carbon Dioxide 24 mmol/L (22-29); Chloride 108 mmol/L (96-108); Creatinine Clr Calc Pharmacy 37.5; Estimated Glomerular Filt Rate 47; Glucose Random 108 mg/dL (60-115); Magnesium 2.4 mg/dL (1.6-2.6); Potassium 3.8 mmol/L (3.3-5.1); Sodium 141 mmol/L (135-145); Total Protein 7.9 g/dL (6.5-8.0)
[2024-04-29 17:35] LABS: Basophils Percent Auto 0.4 % (0-2); Eosinophils Absolute Auto 0.1 X10*3/uL (0.0-0.4); Eosinophils Percent Auto 1.3 % (0-4); Hematocrit 39.8 % (37.0-47.0); Hemoglobin 13.1 g/dl (12.0-16.0); Imm Gran Abs Auto 0.03 X10*3/uL (0.00-0.03); Imm Gran Pct Auto 0.4 % (0.0-0.4); Lymphocytes Absolute Auto 1.3 X10*3/uL (1.2-4.9); Lymphocytes Percent Auto 15.5 % (20-40); Mean Corpuscular HGB Conc 32.9 g/dl (31.0-35.0); Mean Corpuscular Hemoglobin 31.1 pg (27.0-33.0); Mean Corpuscular Volume 94.5 fL (80.0-98.0); Mean Platelet Volume 11.7 fL (9.4-12.3); Monocytes Percent Auto 11.8 % (2-11); Neutrophils Absolute Auto 5.8 x10*3/uL (2.0-8.3); Neutrophils Percent Auto 70.6 % (45-73); Platelet Count 195 X10*3/uL (160-400); Red Blood Count 4.21 X10*6/uL (4.20-5.50); Red Cell Distribution Width 12.8 % (11.0-16.0); White Blood Count 8.3 X10*3/uL (4.8-10.8)
[2024-04-29 17:36] LABS: Troponin-I High Sensitivity 4.8 ng/L (<3.5-17.0)
[2024-04-29 17:37] LABS: INTERNATIONAL NORM RATIO 1.3 (0.9-1.1); Prothrombin Time 15.9 SEC (11.1-13.3)
[2024-04-29 17:53] LABS: Influenza A PCR NEGATIVE (Negative); Influenza B PCR NEGATIVE (Negative); Resp Syncy Virus RNA Qual PCR NEGATIVE (Negative); SARS COV2 PCR INHOUSE POSITIVE (Negative)
[2024-04-29 20:27] VITALS: BP 155/60; PULSE 80; RESP 15; TEMP 36.6; O2SAT 98
[2024-04-29 21:36] LABS: Appearance Urine Clear; Color Urine Yellow; Glucose Urine UA Negative (Negative); Leukocyte Esterase Urine Negative (Negative); Nitrite Urine Negative (Negative); PH 5.5 (5.0-9.0); Urine Blood Negative (Negative); Urine Ketones Negative (Negative); Urine Protein Negative (Neg-Trace)
[2024-04-29 22:32] VITALS: BP 141/86; PULSE 71; RESP 16; TEMP 36.4; O2SAT 96
[2024-04-29 22:38] VITALS: BP 141/86; PULSE 71; RESP 20; TEMP 36.4
== END 2024-04-29 22:40 | disposition home or self-care (01) ==
PROVIDERS: Physician Assistant Medical; Emergency Provider Emergency Medicine; PCP Internal Medicine
DX: U07.1 COVID-19 (principal); J45.901 Unspecified asthma with (acute) exacerbation; R05.9 Cough, unspecified; I48.91 Unspecified atrial fibrillation; Z79.899 Other long term (current) drug therapy
CPT/HCPCS: 0241U; 36415; 71046; 80048; 80076; 81003; 83735; 84484; 85025; 85610; 85730; 93005; 99283; 99285